=== PATIENT | female | born 1985 | race African-American/Black ===

== ENCOUNTER 2018-10-06 18:03 | Emergency (ER) | payer BC ==
[2018-10-06] MEDS ORDERED: NA CHLORIDE 0.9% 1,000 ML ONE (18:46)
[2018-10-06 18:55] LABS: Absolute Lymphocytes (CBC) 1.8 K/uL (0.7-4.9); Basophils % 1.3 % (0-1.3); Hematocrit 35.6 % (36.0-45.0); Lymphocytes % 22.1 % (15.3-44.8); MPV 9.1 fL (7.6-11.3); RBC Red Blood Cell Count 4.92 M/uL (3.86-4.86)
[2018-10-06 19:02] LABS: Urine Blood 2+ (NEG); Urine Glucose 2+ (NEG); Urine Protein NEGATIVE (NEG)
[2018-10-06] MEDS ORDERED: INSULIN -REGULAR HUMAN 50 UNIT/0.5 ML ML ONE (19:28)
[2018-10-06] MEDS ORDERED: KETOROLAC 30 MG/ML INJ ONE (19:56)
--- NOTE | 2018-10-06 20:39 | ER ---
Nurse's Notes [facility] Name: Irving Mckeon Age: 33 yrs Sex: Female : 1985 Arrival Date: 10/06/2018 Time: 18:04 Bed 8 Private MD: Diagnosis: Headache;Hyperglycemia, unspecified Presentation: 10/06 18:25 Presenting complaint: Patient states: I was at work and feeling bad so I went and got la1 my BGL checked, it was over 400 and I am having a VARELA. Transition of care: patient was not received from another setting of care. Onset of symptoms was October 06, 2018. Risk Assessment: Do you want to hurt yourself or someone else? Patient reports no desire to harm self or others. Initial Sepsis Screen: Does the patient meet any 2 criteria? No. Patient's initial sepsis screen is negative. Does the patient have a suspected source of infection? No. Patient's initial sepsis screen is negative. Care prior to arrival: None. 18:25 Method Of Arrival: Ambulatory la1 18:25 Acuity: BLADIMIR 3 la1 Triage Assessment: 19:44 Headache History: The patient has had previous headaches. General: Appears in no mg2 apparent distress. comfortable, Behavior is calm, cooperative. Pain: Complains of pain in head Also complains of no other associated symptoms. 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 - Social history:: Smoking status: Patient/guardian denies using tobacco. - Ebola Screening: : No symptoms or risks identified at this time. Screenin:43 Abuse screen: Denies threats or abuse. Denies injuries from another. Nutritional mg2 screening: No deficits noted. Tuberculosis screening: Fall Risk No fall in past 12 months (0 pts). IV access (20 points). Assessment: 19:42 Pain: Complains of pain in head Pain does not radiate. Pain currently is 5 out of 10 on mg2 a pain scale. Quality of pain is described as crampy, Pain began gradually, Is intermittent. Neuro: Level of Consciousness is awake, alert, obeys commands, Oriented to person, place, time, situation, Reports headache. Cardiovascular: Capillary refill < 3 seconds Patient's skin is warm and dry. Respiratory: Airway is patent Respiratory effort is even, unlabored, Respiratory pattern is regular, symmetrical. GI: No signs and/or symptoms were reported involving the gastrointestinal system. : No signs and/or symptoms were reported regarding the genitourinary system. EENT: Derm: Skin is intact, is healthy with good turgor, Skin is pink, warm \T\ dry. black. Musculoskeletal: Circulation, motion, and sensation intact. Capillary refill < 3 seconds. 20:58 Reassessment: Patient states feeling better. Patient states symptoms have improved. mg2 Vital Signs: 18:26 BP 137 / 97; Pulse 76; Resp 16; Temp 97.6; Pulse Ox 98% on R/A; Weight 78.93 kg; Height la1 5 ft. 6 in. (167.64 cm); 19:44 BP 133 / 88; Pulse 78; Resp 18; Pulse Ox 100% on R/A; mg2 20:31 BP 121 / 76; Pulse 88; Resp 17; Pulse Ox 100% on R/A; mg2 18:26 Body Mass Index 28.08 (78.93 kg, 167.64 cm) la1 S[place]lin Coma Score: 20:30 Eye Response: spontaneous(4). Verbal Response: oriented(5). Motor Response: obeys kb commands(6). Total: 15. ED Course: 18:04 Patient arrived in ED. as 18:26 Triage completed. la1 18:26 Arm band placed on left wrist. la1 18:33 Latha Echevarria FNP-C is [facility]. kb 18:33 Cristian Jones MD is Attending Physician. kb 18:37 David Resendiz RN is Primary Nurse. mg2 18:37 Initial lab(s) drawn, by ak, sent to lab. Inserted saline lock: 20 gauge in right dh3 antecubital area, using aseptic technique. Blood collected. 18:53 Urine collected: clean catch specimen, cloudy. dh3 19:43 Patient has correct armband on for positive identification. school lunch monitor on. Pulse mg2 ox on. NIBP on. Door closed. Warm blanket given. 19:44 No provider procedures requiring assistance completed. mg2 20:58 IV discontinued, intact, bleeding controlled, No redness/swelling at site. Pressure mg2 dressing applied. Administered Medications: 18:53 Drug: NS 0.9% 1000 ml Route: IV; Rate: 1000 ml; Site: right antecubital; jl7 20:25 Follow up: Response: No adverse reaction; IV Status: Completed infusion; IV Intake: mg2 1000ml 19:30 Drug: Insulin Regular Human 10 units {Co-Signature: [email or web address] (Andres Mitchell RN).} Route: mg2 IVP; Site: right antecubital; 20:45 Follow up: Response: No adverse reaction; Blood sugar is lowered mg2 20:00 Drug: TORadol - Ketorolac 15 mg Route: IVP; Site: right antecubital; mg2 20:45 Follow up: Response: No adverse reaction; Marked relief of symptoms mg2 Point of Care Testing: Blood Glucose: 18:30 Blood Glucose: 491 mg/dL; dh3 20:31 Blood Glucose: 295 mg/dL; mg2 Ranges: Intake: 20:25 IV: 1000ml; Total: 1000ml. mg2 Outcome: 20:38 Discharge ordered by MD. kb 20:58 Discharged to home ambulatory. mg2 20:58 Condition: stable 20:58 Discharge instructions given to patient, Instructed on discharge instructions, follow up and referral plans. Demonstrated understanding of instructions, follow-up care. 21:00 Patient left the ED. mg2 Signatures: Latha Echevarria, PAN DUMPER-C PAN DUMPER-Kimber Jones Lee, RN RN la1 Ariella Posada RN RN jl7 Yessy Iglesias 3 David Resendiz RN RN mg2 Andres Mitchell RN [email or web address]
--- NOTE | 2018-10-06 20:39 | EDPHYS ---
Physician Documentation [facility] Name: Irving Mckeon Age: 33 yrs Sex: Female : 1985 Arrival Date: 10/06/2018 Time: 18:04 Bed 8 Private MD: ED Physician Cristian Jones HPI: 10/06 20:36 This 33 yrs old Black Female presents to ER via Ambulatory with complaints of Headache, kb high sugar. 20:36 The patient or guardian reports hyperglycemia. Onset: The symptoms/episode kb began/occurred today. Associated signs and symptoms: Pertinent positives: headache. Current symptoms: In the emergency department the patient's symptoms have improved. The patient has not experienced similar symptoms in the past. The patient has not recently seen a physician. Pt reports she was working and got a headache so she went to the nurse and had her vitals checked. vitals were ok, but sugar was over 400 so she was told to come get checked out. Pt reports she doesn't check her sugar because she doesn't have a monitor. 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 - Social history:: Smoking status: Patient/guardian denies using tobacco. - Ebola Screening: : No symptoms or risks identified at this time. ROS: 20:35 Constitutional: Negative for fever, chills, and weight loss, ENT: Negative for injury, kb pain, and discharge, Neck: Negative for injury, pain, and swelling, Cardiovascular: Negative for chest pain, palpitations, and edema, Respiratory: Negative for shortness of breath, cough, wheezing, and pleuritic chest pain, Abdomen/GI: Negative for abdominal pain, nausea, vomiting, diarrhea, and constipation, Back: Negative for injury and pain, : Negative for injury, bleeding, discharge, and swelling, MS/Extremity: Negative for injury and deformity, Skin: Negative for injury, rash, and discoloration. 20:35 Neuro: Positive for headache. Exam: 20:35 Constitutional: This is a well developed, well nourished patient who is awake, alert, kb and in no acute distress. Head/Face: Normocephalic, atraumatic. ENT: Nares patent. No nasal discharge, no septal abnormalities noted. Tympanic membranes are normal and external auditory canals are clear. Oropharynx with no redness, swelling, or masses, exudates, or evidence of obstruction, uvula midline. Mucous membranes moist. Neck: Trachea midline, no thyromegaly or masses palpated, and no cervical lymphadenopathy. Supple, full range of motion without nuchal rigidity, or vertebral point tenderness. No Meningismus. Chest/axilla: Normal chest wall appearance and motion. Nontender with no deformity. No lesions are appreciated. Cardiovascular: Regular rate and rhythm with a normal S1 and S2. No gallops, murmurs, or rubs. Normal PMI, no JVD. No pulse deficits. Respiratory: Lungs have equal breath sounds bilaterally, clear to auscultation and percussion. No rales, rhonchi or wheezes noted. No increased work of breathing, no retractions or nasal flaring. Abdomen/GI: Soft, non-tender, with normal bowel sounds. No distension or tympany. No guarding or rebound. No evidence of tenderness throughout. Skin: Warm, dry with normal turgor. Normal color with no rashes, no lesions, and no evidence of cellulitis. MS/ Extremity: Pulses equal, no cyanosis. Neurovascular intact. Full, normal range of motion. Neuro: Awake and alert, GCS 15, oriented to person, place, time, and situation. Cranial nerves II-XII grossly intact. Motor strength 5/5 in all extremities. Sensory grossly intact. Cerebellar exam normal. Normal gait. Vital Signs: 18:26 BP 137 / 97; Pulse 76; Resp 16; Temp 97.6; Pulse Ox 98% on R/A; Weight 78.93 kg; Height la1 5 ft. 6 in. (167.64 cm); 19:44 BP 133 / 88; Pulse 78; Resp 18; Pulse Ox 100% on R/A; mg2 20:31 BP 121 / 76; Pulse 88; Resp 17; Pulse Ox 100% on R/A; mg2 18:26 Body Mass Index 28.08 (78.93 kg, 167.64 cm) la1 Callie Coma Score: 20:30 Eye Response: spontaneous(4). Verbal Response: oriented(5). Motor Response: obeys kb commands(6). Total: 15. MDM: 18:33 Patient medically screened. kb 20:30 Data reviewed: vital signs, nurses notes. Data interpreted: Pulse oximetry: on room air kb is 100 %. Interpretation: normal. 20:31 Counseling: I had a detailed discussion with the patient and/or guardian regarding: the kb historical points, exam findings, and any diagnostic results supporting the discharge/admit diagnosis, lab results, the need for outpatient follow up, a family practitioner, to return to the emergency department if symptoms worsen or persist or if there are any questions or concerns that arise at home. 10/06 18:38 Order name: BMP; Complete Time: 19:17 mg2 10/06 18:38 Order name: CBC with Diff; Complete Time: 19:04 mg2 10/06 18:43 Order name: Acetone, Serum; Complete Time: 19:08 mg2 10/06 18:58 Order name: Urine Dipstick--Ancillary (enter results); Complete Time: 19:04 eb 10/06 18:58 Order name: Urine --Ancillary (enter results); Complete Time: 19:04 eb 10/06 18:43 Order name: Urine Dipstick-Ancillary (obtain specimen); Complete Time: 18:47 mg2 10/06 18:44 Order name: IV Start; Complete Time: 18:47 kb Administered Medications: 18:53 Drug: NS 0.9% 1000 ml Route: IV; Rate: 1000 ml; Site: right antecubital; jl7 20:25 Follow up: Response: No adverse reaction; IV Status: Completed infusion; IV Intake: mg2 1000ml 19:30 Drug: Insulin Regular Human 10 units {Co-Signature: [email or web address] (Andres Mitchell RN).} Route: mg2 IVP; Site: right antecubital; 20:45 Follow up: Response: No adverse reaction; Blood sugar is lowered mg2 20:00 Drug: TORadol - Ketorolac 15 mg Route: IVP; Site: right antecubital; mg2 20:45 Follow up: Response: No adverse reaction; Marked relief of symptoms mg2 Point of Care Testing: Blood Glucose: 18:30 Blood Glucose: 491 mg/dL; dh3 20:31 Blood Glucose: 295 mg/dL; mg2 Ranges: Critical Glucose Levels:Adult <50 mg/dl or >400 mg/dl <40 mg/dl or >180 mg/dl Disposition: 10/06/18 20:38 Discharged to Home. Impression: Headache, Hyperglycemia, unspecified. - Condition is Stable. - Discharge Instructions: Hyperglycemia, [id number], General Headache Without Cause, [id number], Type 2 Diabetes Mellitus, Diagnosis, Adult, [id number]. - Medication Reconciliation Form, Thank You Letter, Antibiotic Education, Prescription Opioid Use, Work release form form. - Follow up: Emergency Department; When: As needed; Reason: Worsening of condition. Follow up: Private Physician; When: 2 - 3 days; Reason: Recheck today's complaints, Continuance of care, Re-evaluation by your physician. Addendum: 10/09/2018 07:20 Co-signature as Attending Physician, Cristian Jones MD. r n Signatures: Dispatcher [employer] EDMS Latha Echevarria, APPRAISAL COORDINATOR-C APPRAISAL COORDINATOR-Ckb Cristian Jones MD MD rn Attema, Lee RN RN la1 Ariella Posada RN RN jl7 David Resendiz RN RN mg2 Andres Mitchell RN [email or web address] Corrections: (The following items were deleted from the chart) 10/06 21:00 20:38 10/06/2018 20:38 Discharged to Home. Impression: Headache; Hyperglycemia, mg2 unspecified. Condition is Stable. Forms are Medication Reconciliation Form, Thank You Letter, Antibiotic Education, Prescription Opioid Use. Follow up: Emergency Department; When: As needed; Reason: Worsening of condition. Follow up: Private Physician; When: 2 - 3 days; Reason: Recheck today's complaints, Continuance of care, Re-evaluation by your physician. kb
== END 2018-10-06 21:00 | disposition home or self-care (01) ==
LOC: ER 18:03
DX: E11.65 Type 2 diabetes mellitus with hyperglycemia (principal)
CPT/HCPCS: 96361; 85025; 80048; 36415; 82010; 81025; 82962 ×2; 81003; 96375; 96374; 99284; J7030

== ENCOUNTER 2019-09-09 03:52 | Emergency (ER) | payer BC ==
--- OUTSIDE RECORDS SUMMARY | 2019-09-09 03:56 | XMS REPORT | Continuity of Care Document ---
:1985 Author Organization [facility] Red Information KBLE Care Team Providers Name Role Phone My True Fit Information KBLE Unavailable Un available Problems Problem Status Onset Classification Date Comments Sourc e Date Reported Other chest pain 11/17/19 11/19/[address] Hyperglycemia, 11/17/19 11/19/2016 T he unspecified [address] [place] [address] s BACK PAIN Active 11/17/19 [place] [id number] [facility] Elevated 05/11/19 05/13/2016 [facility] blood-pressure 17 reading, without diagnosis of hypertension Candidiasis of 05/11/19 05/13/2016 [place] vulva and vagina 17 ALLERGIC Active 05/11/[address] REACTION 17 Diabetes Active Problem 11/19/2016 mellitus [place], (disorder) [place] Medications Medication Details Route Status Patient Ordering Order Source Instructions Provider Date Insulin 10 unit, Inactive The regular Route: SUB-Q, [place] ONCE, Dosing Weight 89.091, kg, Priority: STAT, Start date: 11/16/16 11:36:00 CDT, Stop date: 11/16/16 11:36:00 CDT Sodium 1,000 mL, 1000 Inactive The Chloride 0.9% ml/hr, Infuse [facility] ([place]) IV Over: 1 hr, Route: IV, 1,000, Drug form: INJ, ONCE, Priority: STAT, Dosing Weight 89.091 kg, Start date: 11/16/16 11:35:00 CDT, Duration: 1 doses or times, Stop date: 11/16/16 11:35:00 CDT Saline Flush Notes: Inactive The 0.9% preservative [place] free. Miconazole 1 appl, VAG, Active Nitrate 20 Bedtime, X 7 [place] t MG/ML Vaginal day, # 45 gm, Cream 0 Refill(s) [Monistat] Fluconazole 100 mg = 1 No Longer 100 MG Oral tab, PO, Active 017 [place] Tablet Daily, X 1 [Diflucan] day, # 1 tab, 0 Refill(s) Allergies, Adverse Reactions, Alerts No Known Medication Allergies Immunizations No Data Provided for This Section Results Order Name Results Value Reference Date Interpretation Comments Sonia rce Range CARDIAC Troponin-I <0.02 0.00 - 11/16 The ENZYMES 0. [place] CARDIAC CK MB Index <1.1 0.0 - 2.5 11/16 The ENZYMES [place] CARDIAC CK MB <1.0 0.5 - 3.6 11/16 The ENZYMES [place] CARDIAC Total CK 93 12 - 191 11/16 The ENZYMES [place] CARDIAC Troponin-I <0.02 0.00 - 11/16 The ENZYMES 0. [place] CHEM PANEL eGFR 71 11/16 Result Comment: [place] eGFR is calculated using the CKD-EPI formula. In most young, healthy individuals the eGFR will be >90 mL/min/1.73m2 . The eGFR declines with age. An eGFR of 60-89 may be normal in some populations, particularly the elderly, for whom the CKD-EPI formula has not been extensively validated. Use of the eGFR is not recommended in the following populations:< br/>
Nati viduals with unstable creatinine concentration s, including patients and those with serious co-morbid conditions.<b r/>
Patie nts with extremes in muscle mass or diet.

The data above are obtained from the National Kidney Disease Education Program (NKDEP) which additionally recommends that when the eGFR is used in patients with extremes of body mass index for purposes of drug dosing, the eGFR should be multiplied by the estimated BMI. CHEM PANEL ALT 16 0 - 65 11/16 [place] CHEM PANEL A/G Ratio 0.9 0.7 - 1.6 11/16 [place] CHEM PANEL Alk Phos 86 39 - 136 11/16 [place] CHEM PANEL AST 7 0 - 37 11/16 [place] CHEM PANEL Globulin 3.6 2.7 - 4.2 11/16 [place] CHEM PANEL Albumin Lvl 3.3 3.5 - 5.0 11/16 The [place] CHEM PANEL Total 6.9 6.4 - 8.4 11/16 The Protein [place] CHEM PANEL Bili Total 0.2 0.2 - 1.3 11/16 The [place] CHEM PANEL Glucose Lvl 637 70 - 99 11/16 Result The Comment: [place] Critical Result(s) called to sage hernandez at 11/16/2016 11:31 by dena. Read back OK. CHEM PANEL AGAP 14.3 10.0 - 11/16 The 20.0 [place] CHEM PANEL Calcium Lvl 8.7 8.5 - 10.5 11/16 The [place] CHEM PANEL B/C Ratio 4 6 - 25 11/16 The [place] CHEM PANEL Creatinine 1.20 0.50 - 11/16 The Lvl 1.40 [place] CHEM PANEL Sodium Lvl 130 135 - 145 11/16 The [place] CHEM PANEL CO2 23 24 - 32 11/16 The [place] CHEM PANEL Potassium 4.3 3.5 - 5.1 11/16 The Lvl /2016 [place] CHEM PANEL BUN 5 7 - 22 11/16 The [place] CHEM PANEL Chloride Lvl 97 95 - 109 11/16 The [place] HEMATOLOGY D-Dimer <0.27 11/16 The [place] HEMATOLOGY Monocytes 6.1 2.0 - 12.0 11/16 The [place] HEMATOLOGY Eosinophils 1.9 0.0 - 4.0 11/16 The [place] HEMATOLOGY Basophils 1.1 0.0 - 1.0 11/16 The [place] HEMATOLOGY Lymphocytes 32.4 20.0 - 11/16 The 40.0 [place] HEMATOLOGY Segs 58.5 45.0 - 11/16 The 75.0 [place] HEMATOLOGY Basophils # 0.1 0.0 - 0.2 11/16 The [place] HEMATOLOGY Segs-Bands # 3.5 1.5 - 8.1 11/16 The [place] HEMATOLOGY Lymphocytes 1.9 1.0 - 5.5 11/16 The # [place] HEMATOLOGY Monocytes # 0.4 0.0 - 0.8 11/16 MH The /2016 [place] HEMATOLOGY Eosinophils 0.1 0.0 - 0.5 11/16 The # /2016 [place] HEMATOLOGY MCV 83.0 80.0 - 11/16 The 98.0 /2016 [place] HEMATOLOGY MCH 27.6 27.0 - 11/16 The 31.0 /2016 [place] HEMATOLOGY RBC 4.59 4.20 - 11/16 The 5.40 /2016 [place] HEMATOLOGY Hgb 12.6 12.0 - 11/16 The 16.0 /2016 [place] HEMATOLOGY Hct 38.1 36.0 - 11/16 The 48.0 /2016 [place] HEMATOLOGY WBC 6.0 3.7 - 10.4 11/16 The /2016 [place] HEMATOLOGY Platelet 298 133 - 450 11/16 The [place] HEMATOLOGY MPV 9.3 7.4 - 10.4 11/16 The [place] HEMATOLOGY MCHC 33.2 32.0 - 11/16 The 36.0 [place] HEMATOLOGY RDW 13.9 11.5 - 11/16 The 14.5 [place] URINE AND UA <=1.0 0.1 - 1.0 11/16 The STOOL Urobilinogen mg/dL /2016 [place] URINE AND UA Mucus Few /LPF None Seen 11/16 The STOOL /LPF /2016 [place] URINE AND UA Nitrite Negative Negative 11/16 The [facility] (11/16/16 11:01 AM) /2016 [place] URINE AND UA Leuk Est Moderate Negative 11/16 The STOOL *ABN* /2016 [place] (11/16/16 11:01 AM) URINE AND UA RBC 7 0 - 2 11/16 The STOOL /2016 [place] URINE AND UA WBC 6 0 - 5 11/16 The STOOL /2016 [place] URINE AND UA Sq Epi Many /LPF Few /LPF 11/16 The STOOL /2016 [place] URINE AND UA Turbidity Clear Clear 11/16 The [facility] (11/16/16 11:01 AM) /2016 [place] URINE AND UA Color Light Yellow Yellow 11/16 The STOOL *NA* /2016 [place] (11/16/16 11:01 AM) URINE AND UA pH 5.5 5.0 - 8.0 11/16 The STOOL /2016 [place] URINE AND UA Spec Grav 1.026 <=1.030 11/16 The STOOL /2016 [place] URINE AND UA Glucose >=1000 Negative 11/16 The STOOL mg/dL mg/dL /2016 [place] URINE AND UA Protein Negative Negative 11/16 The ST[facility]OL mg/dL mg/dL [place] URINE AND UA Blood Negative Negative 11/16 The STOOL (11/16/16 11:01 AM) /2016 [facility] and URINE AND UA Bili Negative Negative 11/16 The STOOL *NA* /2016 [place] (11/16/16 11:01 AM) URINE AND UA Ketones 10 mg/dL Negative 11/16 The STOOL mg/dL /2016 [place] URINE CHEM U Preg Negative Negative 11/16 The (11/16/16 11:01 AM) [facility] MOLECULAR HSV 1 by PCR Positive 1 Negative 05/11 Result DIAGNOSTIC *ABN* Comment: This [facility] (05/10/16 9:27 PM) sample was POSITIVE for HSV 1 DNA by real-time PCR using hybridization probe and melting curve analysis.<br/ >
Positiv e results can be seen in patients with a primary infection such as in the central nervous system among neonates as well as in patients with reactivation of HSV infection in genital herpes.
< br/>"Signific ant Findings called to Sakina Mcnair on 05/11/2016 16:34 by [place]. Read Back OK." MOLECULAR HSV 2 by PCR Negative 2 Negative 05/11 Result DIAGNOSTIC (05/10/16 9:27 PM) Comment: Th is [place] sample was NON DETECTED or BELOW THE LOWER LIMITS OF DETECTION for HSV 2 DNA by real-time PCR using hybridization probe and melting curve analysis. MOLECULAR Source HSV Genital 05/11 DIAGNOSTIC *NA [place] (05/10/16 9:27 PM) MOLECULAR Source Endocervix 05/11 DIAGNOSTIC APTIMA * [place] (05/10/16 9:26 PM) MOLECULAR C Negative Negative 05/11 DIAGNOSTIC trachomatis * [place] by Amp Det (05/10/16 9:26 PM) (APTIMA) MOLECULAR N gonorrhea Negative Negative 05/11 DIAGNOSTIC by Amp Det * [place] (APTIMA) (05/10/16 9:26 PM) URINE AND UA Leuk Est Negative Negative 05/11 [facility]OOL (05/10/16 7:25 PM) [place] URINE AND UA 0.2 0.1 - 1.0 05/11 STOOL Urobilinogen /2016 [facility] URINE AND UA Nitrite Negative Negative 05/11 STOOL (05/10/16 7:25 PM) /2016 [place] URINE AND UA Blood Negative Negative 05/11 [facility] (05/10/16 7:25 PM) [place] URINE AND UA Spec Grav <=1.005 <=1.030 05/11 STOOL *NA* /2016 [facility] (05/10/16 7:25 PM) URINE AND UA Turbidity Clear Clear 05/11 [facility] (05/10/16 7:25 PM) [place] URINE AND UA Color STRAW 05/11 STOOL /2016 [place] URINE AND UA Bili Negative Negative 05/11 STOOL *NA* /2016 [facility] (05/10/16 7:25 PM) URINE AND UA Ketones Negative Negative 05/11 STOOL *NA* /2016 [facility] (05/10/16 7:25 PM) URINE AND UA Glucose >=1000 Negative 05/11 STOOL mg/dL mg/dL /2016 [place] URINE AND UA Protein Negative Negative 05/11 [facility] (05/10/16 7:25 PM) [place] URINE AND UA pH 6.5 5.0 - 8.0 05/11 STOOL /2016 [place] URINE AND UA WBC 0-2 /HPF None Seen 05/11 STOOL /HPF /2016 [facility] URINE AND UA RBC None Seen 0 - 2 05/11 [facility] (05/10/16 7:25 PM) [place] URINE AND UA Bacteria None Seen None Seen 05/11 [facility] (05/10/16 7:25 PM) [place] URINE AND UA Sq Epi Rare /LPF Few /LPF 05/11 STOOL [facility] URINE CHEM U Preg Negative Negative 05/11 (05/10/16 7:25 PM) [place] Pathology Reports No Data Provided for This Section Diagnostic Reports Report Value Date Source Chest 1view DX Clinical Indication: - chest pain. 11/16/2016 [facility] Comparison: None. TECHNIQUE: AP 1 view chest radiograph was perfor med. FINDINGS: Lung volumes are low. Lungs are clear. Cardiomediastinal silhouette is within normal limits for exam technique. No acute osseous abnormalities. IMPRESSION: Low lung volumes related to technique. No focal consolidation. SL: [id number] Consultation Notes No Data Provided for This Section Discharge Summaries No Data Provided for This Section History and Physicals No Data Provided for This Section Vital Signs Vital Sign Value Date Comments Source Systolic (mm Hg) 127 11/16/2016 [place] Diastolic (mm Hg) 74 11/16/2016 [facility] [place] Respitory Rate 24 11/16/2016 [facility] [place] Heart Rate 80 11/16/2016 [facility] [place] Respitory Rate 26 11/16/2016 [facility] [place] Systolic (mm Hg) 125 11/16/2016 [facility] [place] Diastolic (mm Hg) 82 11/16/2016 [facility] [place] Temperature Oral (F) 98.2 F 11/16/2016 [place] Heart Rate 75 11/16/2016 [facility] [place] Systolic (mm Hg) 132 11/16/2016 [facility] [place] Diastolic (mm Hg) 81 11/16/2016 [facility] [place] Heart Rate 82 11/16/2016 [facility] [place] Respitory Rate 16 11/16/2016 [facility] nds Weight 89.091 11/16/2016 [facility] [place] BMI Calculated 31.7 11/16/2016 [facility] n[facility] Height 167.64 cm 11/16/2016 [facility] [place] Temperature Oral (F) 98.2 F 11/16/2016 [place] Systolic (mm Hg) 144 05/11/2016 [facility] t Diastolic (mm Hg) 82 05/11/2016 [facility] st Temperature Oral (F) 97.1 F 05/11/2016 [place] Heart Rate 76 05/11/2016 [place] Respitory Rate 18 05/11/2016 [place] Systolic (mm Hg) 133 05/11/2016 [place] Diastolic (mm Hg) 100 05/11/[address] Respitory Rate 20 05/11/2016 [place] Systolic (mm Hg) 130 05/11/2016 [place] Diastolic (mm Hg) 83 05/11/[facility] Rate 18 05/11/2016 [place] Weight 99.545 05/10/2016 [facility] Temperature Oral (F) 99.8 F 05/10/2016 [place] Height 170.18 cm 05/10/2016 [facility] BMI Calculated 34.37 05/10/2016 [facility] Heart Rate 101 05/10/2016 [facility] Encounters Location Location Encounter Encounter Reason Attending ADM DC Stat us Source Details Type Number For Provider Date Date [facility] [id number] [place] 05/10 05/11 Red Vazquez /2016 [facility] Emergency [id number] Berna 11/16 11/16 Aftab Murray Guicho gavin [facility] Procedures Procedure Code Date Perfomer Comments Source section [id number] [facility] Assessment and Plan No Data Provided for This Section Plan of Care No Data Provided for This Section Social History Social History Date Source Social History TypeResponse 11/16/2016 [place] [facility] Smoking Status Never smoker; Ready to change: No; Emilia rns about tobacco use in household: No; Exposure to Tobacco Smoke None; Cigarette Smoking Last 365 Days No; Reg Smoking Cessation Counseling No Social History TypeResponse 05/11/2016 [facility] Smoking Status Never smoker; Exposure to Tobacco Smoke None; Cigarette Smoking Last 365 Days No; Reg Smoking Cessation Counseling No Family History No Data Provided for This Section Advance Directives No Data Provided for This Section Functional Status No Data Provided for This Section
--- OUTSIDE RECORDS SUMMARY | 2019-09-09 03:58 | XMS REPORT | Continuity of Care Document ---
:1985 Author Organization [facility] [place] [facility] t Address [address] [place] [address] Care Team Providers Name Role Phone Zara Murrya Attending Clinician EULOGIO Attending Clinician Unavailable COTY Attending Clinician Unavailable AKASH Attending Clinician Unavailable ESTRADA Attending Clinician Unavailable Keaton Vazquez Attending Clinician MILENA Attending Clinician Unavailable Problems Condition Condition Condition Status Onset Resolution Last Treating Co mments Source Name Details Category Date Date Treatment Clinician Date BACK PAIN Diagnosis Active 2016-11-16 Memoria 11-16 11:19:00 l BACK 00:00: [place] PAIN 00 Active 11/16/2016 [facility] ALLERGIC Diagnosis Active 2016-05-10 M emoria REACTION - 23:30:00 l ALLERGIC 00:00: Ish n REACTION 00 Active 05/10/2016 [facility] Problem Active Unive rs discharge discharge HL7.CCDAR2 [place] U[place] UTI Problem Active Univers (urinary (urinary HL7.CCDAR2 it y of tract tract [place] infection) infection) Ph ysici ans Acanthosis Acanthosis Problem Active U nivers nigricans, nigricans, HL7.CCDAR2 ity of acquired acquired [place] Physici ans Acute Acute Problem Active Univers thoracic thoracic HL7.CCDAR2 [place] of [place] pain [place] pain [place] Noncomplia Noncomplia Problem Active U nivers nce nce HL7.CCDAR2 ity of [place] Physici ans Uncontroll Uncontroll Problem Active U nivers ed ed HL7.CCDAR2 ity of diabetes diabetes [place] mellitus mellitus Physic i with with ans microalbum microalbum inuria inuria Screen for Screen for Problem Active U nivers STD STD HL7.CCDAR2 [place] of (sexually ([place]ually [place] transmitte transmitte Ph ysici d disease) d disease) an s Vaginal Vaginal Problem Active Univers bleeding bleeding HL7.CCDAR2 it y of [place] Physici ans Vaginal Vaginal Problem Active Univers discharge discharge HL7.CCDAR2 ity of [place] Physici ans Encounter Encounter Problem Active Uni vers for for HL7.CCDAR2 [place] of mirena of mirena Phys ici IUD IUD ans Problem Active Univers control control HL7.CCDAR2 ity of [place] Physici ans Obesity Obesity Problem Active Univers HL7.CCDAR2 ity of [place] Physici ans PCOS PCOS Problem Active Univers (polycysti (polycysti HL7.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) Phys ici ans Trichomoni Trichomoni Problem Active U nivers asis of asis of HL7.CCDAR2 ity of vagina vagina [place] Physici ans Bacterial Bacterial Problem Active Uni vers vaginosis vaginosis HL7.CCDAR2 ity of [place] Physici ans Vaginal Vaginal Problem Active Univers candidiasi candidiasi HL7.CCDAR2 ity of s s [place] Physici ans Acute Acute Problem Active Univers tonsilliti tonsilliti HL7.CCDAR2 ity of s s [place] Physici ans Hyperglyce Hyperglyce Problem Active U nivers kirsten kirsten HL7.CCDAR2 ity of [place] Physici ans DM DM Problem Active Univers (diabetes (diabetes HL7.CCDAR2 [place] of mellitus[place] mellitus[place] type 2 type 2 Physici ans Other Problem 2016-2016-11-19 2016-11-19 M emoria chest pain 11-16 04:22:32 04:22:32 l Other 05:00: Red chest pain 00 11/16/2016 11/19/2016 [facility] Hyperglyce Problem 2016-11-19 2016-11-19 Delia kirsten, 11-16 04:22:32 04:22:32 l unspecifie 05:00: Ish n d Hyperglyce 00 kirsten, unspecifie d 11/16/2016 11/19/2016 [facility] Elevated Problem 2016-2016-05-13 2016-05-13 Memoria blood-pres 05-10 03:32:39 03:32:39 l sure Elevated 05:00: Ish correa reading, blood-pres 00 without sure diagnosis reading, of without hypertensi diagnosis on of hypertensi on 05/10/2016 05/13/2016 [facility] Candidiasi Problem 2016-2016-05-13 2016-05-13 Memoria s of vulva 05-10 03:32:39 03:32:39 l and vagina 05:00: Ish correa Candidiasi 00 s of vulva and vagina 05/10/2016 05/13/2016 [facility] Allergies, Adverse Reactions, Alerts This patient has no known allergies or adverse reactions. Family History Family Member Diagnosis Comments Start Date Stop Date Source Mother Family history of [facility] hypertension Physicians Father Family history of [facility] diabetes mellitus Physici ans Social History Smoking Status Start Date Stop Date Source Social History [facility] Medications Ordered Filled Start Stop Current Ordering Indication Dosage Frequency Signature Comments Components Source Medication Medication Date Date Medication? Clinician (SIG) Name Name Insulin No 10 unit, Memori a regular 11-16 Route: l 16:36: SUB-Q, Red 00 ONCE, Dosing Weight 89.091, kg, Priority: STAT, Start date: 11/16/16 11:36:00 CDT, Stop date: 11/16/16 11:36:00 CDT Sodium No 1,000 mL, Memori a Chloride 11-16 1000 l 0.9% 16:35: ml/hr, [place] (Bolus) IV 00 Infuse Over: 1 hr, Route: IV, 1,000, Drug form: INJ, ONCE, Priority: STAT, Dosing Weight 89.091 kg, Start date: 11/16/16 11:35:00 CDT, Duration: 1 doses or times, Stop date: 11/16/16 11:35:00 CDT Saline No Notes: Memoria Flush 0.9% 11-16 preservati l 15:27: ve free. Red 00 Blood Blood Yes OSSAMA Use 4 x Univer s Glucose Glucose 7-19 AL-TAHER daily ity of Monitor Monitor 00:00: M.D. ReTargeter System System 00 Physici w/Device w/Device ans Kit Kit Lancets Lancets Yes OSSAMA 4 TIMES A Univers 7-19 AL-TAHER DAY ity of 00:00: M.D. [place] 00 Physici ans Blood Blood Yes OSSAMA Q0.25D TEST 4 Unive rs Glucose Glucose 09-08 AL-TAHER TIMES ity of Test In Test In 00:00: M.D. DAILY. [place] Vitro Strip Vitro Strip 00 P hysici ans MetFORMIN MetFORMIN Yes [place] Q0.5D TAKE 1 Univers HCl - 1000 HCl - 1000 09-08 AL-TAHER TABLET ity of MG Oral MG Oral 00:00: M.D. TWICE [place] Tablet Tablet 00 DAILY WITH Physi ci MEALS. ans HumuLIN HumuLIN Yes OSSAMA 12 Q0.5D INJECT 12 Univers 70/30 70/30 09-08 AL-TAHER UNIT Twice ity of KwikPen KwikPen 00:00: M.D. daily [place] (70-30) 100 (70-30) 100 00 MDD:50 Physici UNIT/ML UNIT/ML TDD:24 ans Subcutaneou Subcutaneou s s Suspension Suspension Pen-injecto Pen-injecto r r Pen [place] Pen [place] Yes OSSAMA USE UP TO Univers 31G X 5 MM 31G X 5 MM 5-08 AL-TAHER 3 TIMES ity of 00:00: M.D. DAILY [place] 00 Physici ans Amoxicillin Amoxicillin Yes SHIFAT Q12H TAKE 1 Univers -Pot -Pot 4-21 BUSTOS N.P. TABLET ity of Clavulanate Clavulanate 00:00: EVERY 12 [place] 875-125 MG 875-125 MG 00 HOURS Ph ysici Oral Tablet Oral Tablet UNTIL ans GONE. Flonase Flonase Yes SHIFAT QD USE 1 Univ ers Sensimist Sensimist 4-21 BUSTOS N.P. SPRAY IN ity of 27.5 27.5 00:00: EACH [place] MCG/SPRAY MCG/SPRAY 00 NOSTRIL Ph ysici Nasal Nasal ONCE ans Suspension Suspension DAILY. Miconazole Yes 1 appl, Jose adelfo Nitrate 20 3-21 VAG, l MG/ML 03:25: Bedtime, X Ish n Vaginal 00 7 day, # Cream 45 gm, 0 [Monistat] Refill(s) Fluconazole No 100 mg = 1 Memoria 100 MG Oral 3-21 tab, PO, l Tablet 03:25: Daily, X 1 Maame nn [Diflucan] 00 day, # 1 tab, 0 Refill(s) MetroNIDAZO MetroNIDAZO Yes REKHA INSERT 1 Univers LE 0.75 % LE 0.75 % 3- ESTRADA APPLICATOR ity of Vaginal Gel Vaginal Gel 00:00: M.D. FUL [place] 00 INTRAVAGIN Physici ALLY AT ans BEDTIME NIGHTLY. Fluconazole Fluconazole Yes REKHA 1 TAKE 1 Univers 150 MG Oral 150 MG Oral 3-07 ESTRADA TABLET NOW ity of Tablet Tablet 00:00: M.D. AND AGAIN [place] 00 IN 3 DAYS. Physici REPEAT ans MONTHLY. MetroNIDAZO MetroNIDAZO Yes REKHA Q0.5D TAKE 1 Univers LE 500 MG LE 500 MG 2-21 ESTRADA TABLET ity of Oral Tablet Oral Tablet 00:00: M.D. TWICE [place] 00 DAILY Physici UNTIL ans FINISHED. NovoLIN NovoLIN Yes OSSAMA use 10 Uni vers 70/30 70/30 2-13 AL-TAHER units ity of ReliOn ReliOn 00:00: M.D. before [place] (70-30) 100 (70-30) 100 00 breakfast Physici UNIT/ML UNIT/ML and 10 ans Subcutaneou Subcutaneou units s s before Suspension Suspension dinner Insulin Insulin Yes OSSAMA USE Uni vers Syringe 31G Syringe 31G 2-13 AL-TAHER DIRECTED. ity of X 5/16" 0.3 X 5/16" 0.3 00:00: M.D. [place] ML ML 00 Physici ans Accu-Chek Accu-Chek Yes OSSAMA USE Univers Linda Linda 2-10 AL-TAHER DIRECTED. ity of Device Device 00:00: M.D. [place] 00 Physici ans Accu-Chek Accu-Chek Yes OSSAMA Q0.5D TEST TWICE Univers Linda Plus Linda Plus 2-10 AL-TAHER DAILY. ity of In Vitro In Vitro 00:00: M.D. [place] Strip Strip 00 Physici ans Accu-Chek Accu-Chek Yes OSSAMA USE Univers FastClix FastClix 2-10 AL-TAHER DIRECTED. ity of Lancet KIT Lancet KIT 00:00: M.D. [place] 00 [place]ici ans Accu-Chek Accu-Chek 2016-0 Yes OSSAMA Check Univers FastClix FastClix 2-10 AL-TAHER blood it y of Lancets Lancets 00:00: M.D. sugars [place] 00 twice Physici daily ans MetFORMIN MetFORMIN 2015-02 Yes [place] Q0.5D TAKE 1 Univers HCl - 1000 HCl - 1000 2-23 AL-TAHER TABLET ity of MG Oral MG Oral 00:00: M.D. TWICE [place] Tablet Tablet 00 DAILY. Physici ans Accu-Chek Accu-Chek 2015- Yes NAHN TA USE Univers Compact Compact 2-23 M.D. DIRECTED. ity of Plus Care Plus Care 00:00: Alli as KIT KIT 00 Physici ans Aspirin 81 Aspirin 81 2015-02 Yes OSSAMA QD CHEW AND Univers MG Oral MG Oral 2-23 AL-TAHER SWALLOW 1 ity of Tablet Tablet 00:00: M.D. TABLET [place] Chewable Chewable 00 DAILY. Physi ci ans Lisinopril Lisinopril 2015-02 Yes OSSAMA 1 QD TAKE 1 Univers 5 MG Oral 5 MG Oral 2-23 AL-TAHER TABLET ity of Tablet Tablet 00:00: M.D. DAILY. [place] 00 Physici ans Atorvastati Atorvastati 2015-02 Yes OSSAMA TAKE 1 Univers n Calcium n Calcium 2-23 AL-TAHER TABLET AT ity of 10 MG Oral 10 MG Oral 00:00: M.D. BEDTIME. [place] Tablet Tablet 00 Physici ans Vital Signs Vital Name Observation Time Observation Value Comments Source Systolic (mm Hg) 2016-11-16 22:10:00 Josesandor Moon Diastolic (mm Hg) 2016-11-16 22:10:00 Mem orial Red Respitory Rate 2016-11-16 22:10:00 Evie Allred Heart Rate 2016-11-16 22:10:00 [facility] Respitory Rate 2016-11-16 20:00:00 Evie Allred Systolic (mm Hg) 2016-11-16 20:00:00 Jose tahira [place] Diastolic (mm Hg) 2016-11-16 20:00:00 Mem orial Red Temperature Oral (F) 2016-11-16 20:00:00 98.2 F [facility] [place] Heart Rate 2016-11-16 20:00:00 [facility] [place] Systolic (mm Hg) 2016-11-16 17:29:00 Jose rial [place] Diastolic (mm Hg) 2016-11-16 17:29:00 Mem orial Red Heart Rate 2016-11-16 17:29:00 [facility] [place] Respitory Rate 2016-11-16 17:29:00 Memori al [place] Weight 2016-11-16 15:24:00 [facility] BMI Calculated 2016-11-16 15:24:00 Memori al [place] Height 2016-11-16 15:24:00 167.64 cm [facility] [place] Temperature Oral (F) 2016-11-16 15:24:00 98.2 F [facility] Systolic (mm Hg) 2016-05-11 03:22:00 Jose rial [place] Diastolic (mm Hg) 2016-05-11 03:22:00 Mem orial Red Temperature Oral (F) 2016-05-11 03:15:00 97.1 F [facility] [place] Heart Rate 2016-05-11 03:00:00 [facility] Respitory Rate 2016-05-11 03:00:00 Memori al [place] Systolic (mm Hg) 2016-05-11 03:00:00 Jose rial [place] Diastolic (mm Hg) 2016-05-11 03:00:00 Mem orial Red Respitory Rate 2016-05-11 02:00:00 Memori al [place] Systolic (mm Hg) 2016-05-11 02:00:00 Jose rial Red Diastolic (mm Hg) 2016-05-11 02:00:00 Mem orial Red Respitory Rate 2016-05-11 01:00:00 Memori al Red Weight 2016-05-10 20:47:00 [facility] [place] Temperature Oral (F) 2016-05-10 20:47:00 99.8 F [facility] Height 2016-05-10 20:47:00 170.18 cm [facility] BMI Calculated 2016-05-10 20:47:00 Memori al Red Heart Rate 2016-05-10 20:47:00 [facility] Procedures Procedure Date / Time Performed Performing Clinician [facility] e History of University o f [place] Section Physicians section [facility] Ish n Encounters Start End Encounter Admission Attending Care Care Encounter Source Date/Time Date/Time Type Type Clinicians Facility Department ID 2016-11-16 2016-11-16 Outpatient [facility] [id number] 10:18:00 17:22:00 Berna Zuñiga 01 2016-10-28 2016-10-28 Arturo KRISHNAN, [facility] UTP [id number] Univers 13:00:00 13:00:00 t; JOSE MITCHELL [place] STEPHEN Physic i RD ans 2016-10-06 2016-10-06 Arturo ANSARI, [facility] UTP [id number] Univers 10:00:00 10:00:00 t; Bo RUTLEDGE M.D. [place] Ronnell RUTLEDGE M.D. ans 2016-09-09 2016-09-09 Arturo ANSARI, NISHA UTP [id number] Univers 08:20:00 08:20:00 t; oB RUTLEDGE M.D. [place] Ronnell RUTLEDGE M.D. ans 2016-09-08 2016-09-08 Arturo ANSARI, NISHA UTP [id number] Univers 14:20:00 14:20:00 t; Bo RUTLEDGE M.D. [place] Ronnell RUTLEDGE M.D. ans 2016-06-11 2016-06-11 NISHA Baig UTP [id number] Univers 09:30:00 09:30:00 t; EDIN BUSTOS NP it y of SHIFAT, NP [place] Physicnicolette ans 2016-05-18 2016-05-18 NIHSA Mccloud UTP [id number] Univers 09:30:00 09:30:00 t; Ricco DA SILVA M.D. [place] Ronnell DA SILVA M.D. ans 2016-05-10 2016-05-10 Outpatient George [facility] [id number] 15:41:00 22:39:00 [place] 00 Ke[place] 2016-04-27 2016-04-27 NISHA Mccloud UTP [id number] Univers 09:30:00 09:30:00 t; Ricco DA SILVA M.D. [place] Ronnell DA SILVA M.D. ans 2016-04-05 2016-04-05 AppointNISHA Fritz UTP [id number] Univers 08:30:00 08:30:00 t; Ricco DA SILVA M.D. [place] Ronnell DA SILVA M.D. ans 2016-04-02 2016-04-02 AppointNISHA Oliva UTP [id number] Univers 10:00:00 10:00:00 t; Bo RUTLEDGE M.D. [place] Ronnell RUTLEDGE M.D. ans 2016-03-30 2016-03-30 Appointmen PEDRO ABBOTT, NISHA UTP [id number] Univers 09:00:00 09:00:00 t; Katarina ABBOTT M.D. [facility] 2016-02-27 2016-02-27 AppointNISHA Oliva UTP [id number] Univers 09:30:00 09:30:00 t; Bo RUTLEDGE M.D. [place] Ronnell RUTLEDGE M.D. ans 2016-02-19 2016-02-19 Appointmen PEDRO ABBOTT, NISHA UTP [id number] Univers 09:30:00 09:30:00 t; Katarina ABBOTT M.D. [facility] 2016-02-13 2016-02-13 AppointNISHA Oliva UTP [id number] Univers 14:00:00 14:00:00 t; Bo RUTLEDGE M.D. [place] Ronnell RUTLEDGE M.D. [facility] 2016-02-13 2016-02-13 Appointmen PEDRO ABBOTT, NISHA UTP [id number] Univers 10:30:00 10:30:00 t; Katarina ABBOTT M.D. [facility] 2016-02-12 2016-02-12 AppointPEDRO Perales, NISHA UTP [id number] Univers 09:30:00 09:30:00 t; Katarina ABBOTT M.D. [facility] Results Test Description Test Time Test Comments Results Result Comments Source CARDIAC ENZYMES 2016-11-16 <0.02 [facility] 19:10:00 CARDIAC ENZYMES 2016-11-16 <1.1 [facility] 16:01:00 CARDIAC ENZYMES 2016-11-16 <1.0 [facility] 16:01:00 CARDIAC ENZYMES 2016-11-16 93 [facility] 16:01:00 CARDIAC ENZYMES 2016-11-16 <0.02 [facility] 16:01:00 CHEM PANEL 2016-11-16 71 [facility] Maame nn 16:01:00 CHEM PANEL 2016-11-16 16 [facility] [place] nn 16:01:00 CHEM PANEL 2016-11-16 0.9 [facility] [place] nn 16:01:00 CHEM PANEL 2016-11-16 86 [facility] [place] nn 16:01:00 CHEM PANEL 2016-11-16 7 [facility] nn 16:01:00 CHEM PANEL 2016-11-16 3.6 [facility] [place] nn 16:01:00 CHEM PANEL 2016-11-16 3.3 [facility] [place] nn 16:01:00 CHEM PANEL 2016-11-16 6.9 [facility] [place] nn 16:01:00 CHEM PANEL 2016-11-16 0.2 [facility] [place] nn 16:01:00 CHEM PANEL 2016-11-16 637 [facility] [place] nn 16:01:00 CHEM PANEL 2016-11-16 14.3 [facility] [place] nn 16:01:00 CHEM PANEL 2016-11-16 8.7 [facility] [place] nn 16:01:00 CHEM PANEL 2016-11-16 4 [facility] [place] nn 16:01:00 CHEM PANEL 2016-11-16 1.20 [facility] [place] nn 16:01:00 CHEM PANEL 2016-11-16 130 [facility] [place] nn 16:01:00 CHEM PANEL 2016-11-16 23 [facility] [place] nn 16:01:00 CHEM PANEL 2016-11-16 4.3 [facility] [place] nn 16:01:00 CHEM PANEL 2016-11-16 5 [facility] [place] nn 16:01:00 CHEM PANEL 2016-11-16 97 [facility] [place] nn 16:01:00 HEMATOLOGY 2016-11-16 <0.27 [facility] nn 16:01:00 HEMATOLOGY 2016-11-16 6.1 [facility] [place] nn 16:01:00 HEMATOLOGY 2016-11-16 1.9 [facility] nn 16:01:00 HEMATOLOGY 2016-11-16 1.1 [facility] [place] nn 16:01:00 HEMATOLOGY 2016-11-16 32.4 [facility] nn 16:01:00 HEMATOLOGY 2016-11-16 58.5 [facility] nn 16:01:00 HEMATOLOGY 2016-11-16 0.1 [facility] [place] nn 16:01:00 HEMATOLOGY 2016-11-16 3.5 [facility] Ma[facility] nn 16:01:00 HEMATOLOGY 2016-11-16 1.9 [facility] nn 16:01:00 HEMATOLOGY 2016-11-16 0.4 [facility] nn 16:01:00 HEMATOLOGY 2016-11-16 0.1 [facility] nn 16:01:00 HEMATOLOGY 2016-11-16 83.0 [facility] nn 16:01:00 HEMATOLOGY 2016-11-16 16:01:00 Test Item Value Reference Range Interpretation Comme nts MCH (test code = MCH) 27.6 pg 27.0-31.0 [facility] [id number] 16:01:004.59[facility]annHEMATOLOGY 2016-11-16 16:01:0012.6[facility] [id number] 16:01:0038.1[facility] [id number] 16:01:006.0[facility] [id number] 16:01:48695Bsjufagj [id number] 16:01:009.3[facility] [place] [id number] 16:01:0033.2[facility] [id number] 16:01:00 13.9[facility] AND [id number] 16:01:00Negative (11/16/16 11:01 AM)[facility] [id number] 16:01:00Moderate *ABN*(11/16/16 11:01 AM)[facility] [id number] 16:01:007[facility] [place] URINE AND [id number] 16:01:006[facility] AND [id number] 16:01:00Clear (11/16/16 11:01 AM)[facility] [id number] 16:01:00Light Yellow *NA*(11/16/16 11:01 AM)[facility] STOOL 2016-11-16 16:01:005.5[facility] [id number] 16:01:001.026 [facility] [id number] 16:01:00Negative (11/16/16 11:01 AM) [facility] [id number] 16:01:00Negative *NA*(11/16/16 11:01 AM)[facility] [id number] 16:01:00Negative (11/16/16 11:01 AM) [facility]ann[facility]LECULAR [id number] 02:27:00Positive 1*ABN*(05/10/16 9:27 PM)[facility]LE[facility] [id number] 02:27:00Negative 2(05/10/16 9:27 PM)[facility]ann[facility]LE[facility]ULAR [id number] 02:27:00Genital *NA*(05/10/16 9:27 PM)[facility]ann[facility]LE[facility] [id number] 02:26:00 Endocervix *NA*(05/10/16 9:26 PM)[facility] [id number] 02:26:00Negative *NA*(05/10/16 9:26 PM)[facility]ann[facility] DIAGNOSTIC 2016-05-11 02:26:00Negative *NA*(05/10/16 9:26 PM)[facility] STOOL 2016-05-11 00:25:00Negative (05/10/16 7:25 PM)[facility] STOOL 2016-05-11 00:25:000.2[facility] [id number] 00:25:00Negative (05/10/16 7:25 PM)[facility] [id number] 00:25:00Negative (05/10/16 7:25 PM)[facility] [id number] 00:25:00<=1.005 *NA*(05/10/16 7:25 PM)[facility] [id number] 00:25:00Clear (05/10/16 7:25 PM)[facility] [id number] 00:25:00Negative *NA*(05/10/16 7:25 PM)[facility] [id number] 00:25:00Negative *NA*(05/10/16 7:25 PM)[facility] [id number] 00:25:00Negative (05/10/16 7:25 PM)[facility] [id number] 00:25:00 Test Item Value Reference Range Interpretation Comments UA pH (test code = UA pH) 6.5 1 5.0-8.0 [facility] [id number] 00:25:00None Seen (05/10/16 7:25 PM) [facility] [id number] 00:25:00None Seen (05/10/16 7:25 PM) [facility] [id number] 00:25:00Negative (05/10/16 7:25 PM)[facility]
[2019-09-09] MEDS ORDERED: ACETAMINOPHEN 500 MG TAB ONE (04:33)
--- NOTE | 2019-09-09 05:13 | ER ---
Nurse's Notes [facility] [place] Name: [place] Mckeon Age: 33 yrs Sex: Female : 1985 Arrival Date: 09/09/2019 Time: 03:54 Bed 4 Private MD: Diagnosis: Right Shoulder Strain Presentation: 09/08 04:03 Chief complaint: Patient states: My right shoulder has been hurting for 2 days, I have sg had this pain before in the past but this time even with rest it isn't really getting any better. Denies N/V/D/Fever, denies injury or trauma, reports pain has kept her up this evening, was not able to sleep. Coronavirus screen: Patient denies a cough. Patient denies shortness of breath or difficulty breathing. Patient denies measured and/or subjective temperature greater than 100.4F prior to today's visit. Patient denies travel on a cruise ship or to a country the [facility] currently lists as an affected area. Patient denies contact with known and/or suspected case of COVID-19. Proceed with normal triage. Ebola Screen: Patient negative for fever greater than or equal to 101.5 degrees Fahrenheit, and additional compatible Ebola Virus Disease symptoms Patient denies exposure to infectious person. Patient denies travel to an Ebola-affected area in the 21 days before illness onset. No symptoms or risks identified at this time. Initial Sepsis Screen: Does the patient meet any 2 criteria? No. Patient's initial sepsis screen is negative. Does the patient have a suspected source of infection? No. Patient's initial sepsis screen is negative. Risk Assessment: Do you want to hurt yourself or someone else? Patient reports no desire to harm self or others. Onset of symptoms was September 07, 2019. Care prior to arrival: None. Activity prior to arrival: None. Mechanism of Injury: No Mechanism of Injury. Transition of care: patient was not received from another setting of care. 04:03 Method Of Arrival: Ambulatory 04:03 Acuity: BLADIMIR 4 sg END FRAZER: 04:05 LMP 09/09/2019 sg Historical: - Allergies: 03:57 No Known Allergies; sg - PMHx: 03:57 Diabetes - NIDDM; sg - PSHx: 04:18 ; sg - Immunization history:: Adult Immunizations up to date. - Social history:: Smoking status: Patient denies any tobacco usage or history of. Screenin:28 Abuse screen: Denies threats or abuse. Denies injuries from another. Nutritional rv screening: No deficits noted. Tuberculosis screening: No symptoms or risk factors identified. Fall Risk None identified. Assessment: 04:26 General: Appears comfortable, Behavior is calm, cooperative. Pain: Complains of pain in rv right shoulder Pain currently is 9 out of 10 on a pain scale. Neuro: Level of Consciousness is awake, alert, obeys commands, Oriented to person, place, time, situation. Cardiovascular: Patient's skin is warm and dry. Respiratory: Airway is patent. Derm: Skin is intact. Vital Signs: 04:05 Pulse 89; Resp 18; Pulse Ox 100% on R/A; Weight 79.38 kg (R); Height 5 ft. 7 in. sg (170.18 cm) (R); 05:26 BP 125 / 76; Pulse 86; Resp 16; Temp 98; Pulse Ox 99% on R/A; rv 04:05 Body Mass Index 27.41 (79.38 kg, 170.18 cm) ED Course: 03:54 Patient arrived in ED. do 03:57 Arm band placed on. sg 04:04 Morgan Stokes, NEGRO is Primary Nurse. rv 04:04 Nate Morales MD is Attending Physician. 7 04:05 Triage completed. sg 04:28 Patient has correct armband on for positive identification. Pulse ox on. NIBP on. rv 04:51 Shoulder Right (2 View) XRAY In Process Unspecified. EDMS 05:11 Mo Ceron MD is Referral Physician. 7 05:12 Sahra Shannon MD is Referral Physician. 7 05:27 No provider procedures requiring assistance completed. Patient did not have IV access rv during this emergency room visit. 05:28 Sling applied to right arm. rv Administered Medications: 04:28 Drug: Tylenol 1000 mg Route: PO; rv 05:28 Follow up: Response: No adverse reaction rv Outcome: 05:13 Discharge ordered by . 7 05:28 Discharged to home ambulatory. rv 05:28 Condition: good 05:28 Discharge instructions given to patient, Instructed on discharge instructions, follow up and referral plans. medication usage, Demonstrated understanding of instructions, follow-up care, medications, Prescriptions given X 1. 05:28 Patient left the ED. rv Signatures: Dispatcher [employer] EDMo Bustamante RN RN sg Ogletree, Danielle do Vicente, Ronaldo RN RN Nate Groves MD MD [id number]
--- NOTE | 2019-09-09 05:13 | EDPHYS ---
Physician Documentation [facility] Name: Irving Mckeon Age: 33 yrs Sex: Female : 1985 Arrival Date: 09/09/2019 Time: 03:54 Bed 4 Private MD: ED Physician Nate Morales HPI: 09/08 04:14 This 33 yrs old Black Female presents to ER via Ambulatory with complaints of Shoulder mh7 Pain. 04:14 The patient or guardian complains of pain, that is acute. right shoulder. Context: The mh7 problem was sustained at home, resulted from an unknown reason, The patient experiences decreased range of motion, when rotates arm, The patient reports no obvious deformity. Onset: The symptoms/episode began/occurred 3 day(s) ago. Modifying factors: the symptoms are alleviated by remaining still, The symptoms are aggravated by movement, rotation of arm. Associated signs and symptoms: Pertinent negatives: abdominal pain, chest pain, diaphoresis, dyspnea, neck pain, shortness of breath, tingling. Severity of symptoms: At their worst the symptoms were moderate, yesterday, in the emergency department the symptoms have improved, moderately. Treatment prior to arrival includes: no previous treatment. The patient has experienced similar episodes in the past, multiple times. EMERGENCY DISPATCHER: 04:05 LMP 09/09/2019 sg Historical: - Allergies: 03:57 No Known Allergies; sg - PMHx: 03:57 Diabetes - NIDDM; sg - PSHx: 04:18 ; sg - Immunization history:: Adult Immunizations up to date. - Social history:: Smoking status: Patient denies any tobacco usage or history of. ROS: 04:17 Constitutional: Negative for fever, chills, and weight loss, Eyes: Negative for injury, mh7 pain, redness, and discharge, ENT: Negative for injury, pain, and discharge, Neck: Negative for injury, pain, and swelling, Cardiovascular: Negative for chest pain, palpitations, and edema, Respiratory: Negative for shortness of breath, cough, wheezing, and pleuritic chest pain, Abdomen/GI: Negative for abdominal pain, nausea, vomiting, diarrhea, and constipation, Back: Negative for injury and pain, : Negative for injury, bleeding, discharge, and swelling, Skin: Negative for injury, rash, and discoloration, Neuro: Negative for headache, weakness, numbness, tingling, and seizure, Psych: Negative for depression, anxiety, suicide ideation, homicidal ideation, and hallucinations, Allergy/Immunology: Negative for hives, rash, and allergies, Endocrine: Negative for neck swelling, polydipsia, polyuria, polyphagia, and marked weight changes, Hematologic/Lymphatic: Negative for swollen nodes, abnormal bleeding, and unusual bruising. Exam: 04:17 Constitutional: This is a well developed, well nourished patient who is awake, alert, mh7 and in no acute distress. Head/Face: Normocephalic, atraumatic. Eyes: Pupils equal round and reactive to light, extra-ocular motions intact. Lids and lashes normal. Conjunctiva and sclera are non-icteric and not injected. Cornea within normal limits. Periorbital areas with no swelling, redness, or edema. Neck: Trachea midline, no thyromegaly or masses palpated, and no cervical lymphadenopathy. Supple, full range of motion without nuchal rigidity, or vertebral point tenderness. No Meningismus. Chest/axilla: Normal chest wall appearance and motion. Nontender with no deformity. No lesions are appreciated. Cardiovascular: Regular rate and rhythm with a normal S1 and S2. No gallops, murmurs, or rubs. Normal PMI, no JVD. No pulse deficits. Respiratory: Lungs have equal breath sounds bilaterally, clear to auscultation and percussion. No rales, rhonchi or wheezes noted. No increased work of breathing, no retractions or nasal flaring. Abdomen/GI: Soft, non-tender, with normal bowel sounds. No distension or tympany. No guarding or rebound. No evidence of tenderness throughout. Back: No spinal tenderness. No costovertebral tenderness. Full range of motion. Skin: Warm, dry with normal turgor. Normal color with no rashes, no lesions, and no evidence of cellulitis. 04:17 Neuro: Awake and alert, GCS 15, oriented to person, place, time, and situation. Cranial nerves II-XII grossly intact. Motor strength 5/5 in all extremities. Sensory grossly intact. Cerebellar exam normal. Normal gait. Psych: Awake, alert, with orientation to person, place and time. Behavior, mood, and affect are within normal limits. 04:17 Musculoskeletal/extremity: Extremities: noted in the right shoulder: pain, tenderness, ROM: limited active range of motion due to pain, in the right shoulder, limited passive range of motion due to pain, in the right shoulder, Circulation is intact in all extremities. Pulses: are normal with no appreciated deficits, Perfusion: the patient is normally perfused throughout, Perfusion: the extremity is normally perfused throughout, Calf tenderness, is absent, Edema, is not appreciated, Sensation intact. Compartment Syndrome exam of affected extremity: is normal. no numbness, no tingling, no sensation deficit, no palor, no weak pulses, Joints: the right shoulder displays tenderness, Weight bearing: able to fully bear weight, without difficulty, Tendon exam: specific tendon testing normal through active and passive range of motion DVT Exam: no swelling, negative Homans' sign noted on exam, no appreciated bluish discoloration, no erythema, no increased warmth. Vital Signs: 04:05 Pulse 89; Resp 18; Pulse Ox 100% on R/A; Weight 79.38 kg (R); Height 5 ft. 7 in. sg (170.18 cm) (R); 05:26 BP 125 / 76; Pulse 86; Resp 16; Temp 98; Pulse Ox 99% on R/A; rv 04:05 Body Mass Index 27.41 (79.38 kg, 170.18 cm) MDM: 04:20 Patient medically screened. [facility] 05:09 Differential diagnosis: Anterior dislocation without fracture, Posterior dislocation mh7 without fracture, DJD, tendonitis, Arthritis, Shoulder Pain. Data reviewed: vital signs, nurses notes, lab test result(s), finger stick glucose, urinalysis, UPT: radiologic studies, plain films. Data interpreted: Pulse oximetry: on room air is 100 %. Interpretation: normal. Counseling: I had a detailed discussion with the patient and/or guardian regarding: the historical points, exam findings, and any diagnostic results supporting the discharge/admit diagnosis, lab results, radiology results, the need for outpatient follow up, to return to the emergency department if symptoms worsen or persist or if there are any questions or concerns that arise at home. Response to treatment: the patient's symptoms have markedly improved after treatment. 09/08 04:25 Order name: Urine Dipstick--Ancillary (enter results) 09/08 04:25 Order name: Urine --Ancillary (enter results) 09/08 04:14 Order name: Urine Dipstick-Ancillary (obtain specimen); Complete Time: 04:24 [facility] 09/08 04:14 Order name: Shoulder Right (2 View) XRAY [facility] 09/08 04:41 Order name: Glucose, Ancillary Testing; Complete Time: 04:56 [facility] 09/08 04:14 Order name: Urine Test (obtain specimen); Complete Time: 04:24 [facility] 09/08 04:16 Order name: Accucheck Blood Glucose; Complete Time: 04:30 [facility] Administered Medications: 04:28 Drug: Tylenol 1000 mg Route: PO; rv 05:28 Follow up: Response: No adverse reaction rv Disposition: 09/09/19 05:13 Discharged to Home. Impression: Right Shoulder Strain. - Condition is Stable. - Discharge Instructions: Shoulder Pain, [id number]. - Prescriptions for Ibuprofen 800 mg Oral Tablet - take 1 tablet by ORAL route every 8 hours As needed take with food; 15 tablet. - Medication Reconciliation Form, Thank You Letter, Antibiotic Education, Prescription Opioid Use form. - Follow up: Private Physician; When: 1 - 2 days; Reason: Worsening of condition, Recheck today's complaints, Continuance of care, Re-evaluation by your physician. Follow up: Mo Ceron MD; When: 2 - 3 days; Reason: Worsening of condition, Recheck today's complaints. Follow up: Sahra Shannon MD; When: 2 - 3 days; Reason: Worsening of condition, Recheck today's complaints. - Problem is an acute exacerbation. - Symptoms have improved. Signatures: Dispatcher [employer] [facility] Mo Taylor, RN RN Morgan Musnon RN RN Nate Groves MD MD 7 Corrections: (The following items were deleted from the chart) 05:13 05:13 09/09/2019 05:13 Discharged to Home. Impression: Right Shoulder Strain. Condition 7 is Stable. Forms are Medication Reconciliation Form, Thank You Letter, Antibiotic Education, Prescription Opioid Use. Follow up: Private Physician; When: 1 - 2 days; Reason: Worsening of condition, Recheck today's complaints, Continuance of care, Re-evaluation by your physician. Follow up: Mo Ceron; When: 2 - 3 days; Reason: Worsening of condition, Recheck today's complaints. Follow up: Sahra Shannon; When: 2 - 3 days; Reason: Worsening of condition, Recheck today's complaints. mh7 05:28 05:13 09/09/2019 05:13 Discharged to Home. Impression: Right Shoulder Strain. Condition rv is Stable. Forms are Medication Reconciliation Form, Thank You Letter, Antibiotic Education, Prescription Opioid Use. Follow up: Private Physician; When: 1 - 2 days; Reason: Worsening of condition, Recheck today's complaints, Continuance of care, Re-evaluation by your physician. Follow up: Mo Ceron; When: 2 - 3 days; Reason: Worsening of condition, Recheck today's complaints. Follow up: Sahra Shannon; When: 2 - 3 days; Reason: Worsening of condition, Recheck today's complaints. Problem is an acute exacerbation. Symptoms have improved. mh7
[2019-09-09 05:18] LABS: Urine Blood 3+ (NEG); Urine Glucose 3+ (NEG); Urine Protein 1+ (NEG); Urine Specific Gravity >1.030 (1.005-1.030); Urine pH 5.5 (5.0-7.0)
[2019-09-09 05:47] VITALS: BP 125/76; TEMP 98; O2SAT 99
--- NOTE | 2019-09-09 12:37 | RAD REPORT ---
EXAM DESCRIPTION: RAD - Shoulder Right 2 View - 09/09/2019 4:52 am CLINICAL HISTORY: PAIN COMPARISON: No comparisons FINDINGS: No fracture or dislocation seen. No aggressive marrow pattern. Prominent inferior acromial spur present.
== END 2019-09-09 05:28 | disposition home or self-care (01) ==
LOC: ER 03:52
DX: S46.911A Strain of unspecified muscle, fascia and tendon at shoulder and upper arm level, right arm, initial encounter (principal); X58.XXXA Exposure to other specified factors, initial encounter; Y93.9 Activity, unspecified; Y92.009 Unspecified place in unspecified non-institutional (private) residence as the place of occurrence of the external cause
CPT/HCPCS: 81003; 81025; 82947; 99284

== ENCOUNTER 2019-11-18 13:28 | Emergency (ER) | payer BC ==
--- OUTSIDE RECORDS SUMMARY | 2019-11-18 13:31 | XMS REPORT | Continuity of Care Document ---
:1985 Author Organization [facility] t Address [address] [place] [address] Care Team Providers Name Role Phone Zara Murray Attending Clinician EULOGIO Attending Clinician Unavailable COTY Attending Clinician Unavailable AKASH Attending Clinician Unavailable ESTRADA Attending Clinician Unavailable Keaton Vazquez Attending Clinician MILENA Attending Clinician Unavailable Problems Condition Condition Condition Status Onset Resolution Last Treating Co mments Source Name Details Category Date Date Treatment Clinician Date BACK PAIN Diagnosis Active 2016-11-16 Memoria 11-16 11:19:00 l BACK 00:00: [place] PAIN 00 Active 11/16/[address] [facility] ALLERGIC Diagnosis Active 2016-05-10 M emoria REACTION - 23:30:00 l ALLERGIC 00:00: Ish n REACTION 00 Active 05/10/2016 [facility] Problem Active Unive rs discharge discharge [id number] [...] pain 11-16 04:22:32 04:22:32 l Other 05:00: [place] chest pain 00 11/16/2016 11/19/[address] [facility] [place] [place] Hyperglyce Problem 2016-11-19 2016-11-19 Delia kirsten, 11-16 04:22:32 04:22:32 l unspecifie 05:00: Ish n d Hyperglyce 00 kirsten, unspecifie d 11/16/2016 11/19/[address] [facility] [place] Elevated Problem 2016-2016-05-13 2016-05-13 Memoria blood-pres 05-10 03:32:39 03:32:39 l sure Elevated 05:00: Ish correa reading, blood-pres 00 without sure diagnosis reading, of without hypertensi diagnosis on of hypertensi on 05/10/2016 05/13/2016 Taylor Candidiasi Problem 2016-2016-05-13 2016-05-13 Memoria s of vulva 05-10 03:32:39 03:32:39 l and vagina 05:00: Ish correa Candidiasi 00 s of vulva and vagina 05/10/2016 05/13/2016 [facility] Allergies, Adverse Reactions, Alerts This patient has no known allergies or adverse reactions. Family History Family Member Diagnosis Comments Start Date Stop Date Source Mother Family history of [facility] hypertension Physicians Father Family history of [facility] diabetes mellitus Physici ans Social History Smoking Status Start Date Stop Date Source Social History [facility] Medications Ordered Filled Start Stop Current Ordering [...] Chloride 11-16 1000 l 0.9% 16:35: ml/hr, [place] (Bolus) IV 00 Infuse Over: 1 hr, [...] daily ity of Monitor Monitor 00:00: M.D. Plan Me Up System System 00 Physici w/Device w/Device ans Kit Kit Lancets Lancets Yes OSSAMA 4 TIMES A Univers 7-19 AL-TAHER DAY ity of 00:00: M.D. [place] 00 Physici ans Blood Blood Yes OSSAMA Q0.25D TEST 4 Unive rs Glucose Glucose 09-08 AL-TAHER TIMES ity of Test In Test In 00:00: M.D. DAILY. [place] Vitro Strip Vitro Strip 00 P hysici [...] ity of KwikPen KwikPen 00:00: M.D. daily [place] (70-30) 100 (70-30) 100 00 MDD:50 Physici UNIT/ML UNIT/ML TDD:24 ans Subcutaneou Subcutaneou s s Suspension Suspension Pen-injecto Pen-injecto r r Pen [place] Pen [place] Yes OSSAMA USE UP TO Univers 31G X 5 MM 31G X 5 MM 5-08 AL-TAHER 3 TIMES ity of 00:00: M.D. DAILY [place] 00 Physici ans Amoxicillin Amoxicillin Yes SHIFAT [...] Diastolic (mm Hg) 2016-11-16 22:10:00 Mem orial [place] Respitory Rate 2016-11-16 22:10:00 Evie Allred Heart Rate 2016-11-16 22:10:00 [facility] [place] Respitory Rate 2016-11-16 20:00:00 Evie Allred Systolic (mm Hg) 2016-11-16 20:00:00 Jose tahira [place] Diastolic (mm Hg) 2016-11-16 20:00:00 Mem orial [place] Temperature Oral (F) 2016-11-16 20:00:00 98.2 F [facility] Heart Rate 2016-11-16 20:00:00 [facility] [place] Systolic (mm Hg) 2016-11-16 17:29:00 Jose rial Red Diastolic (mm Hg) 2016-11-16 17:29:00 Mem [facility] Heart Rate 2016-11-16 17:29:00 [facility] Respitory Rate 2016-11-16 17:29:00 Memori al [place] Weight 2016-11-16 15:24:00 [facility] [place] BMI Calculated 2016-11-16 15:24:00 Memori al [place] Height 2016-11-16 15:24:00 167.64 cm [facility] Temperature Oral (F) 2016-11-16 15:24:00 98.2 F [facility] Systolic (mm Hg) 2016-05-11 03:22:00 Jose rial Red Diastolic (mm Hg) 2016-05-11 03:22:00 Mem orial Red Temperature Oral (F) 2016-05-11 03:15:00 97.1 F [facility] [place] Heart Rate 2016-05-11 03:00:00 [facility] [place] Respitory Rate 2016-05-11 03:00:00 Memori al Red Systolic (mm Hg) 2016-05-11 03:00:00 Jose rial [place] Diastolic (mm Hg) 2016-05-11 03:00:00 Mem orial Red Respitory Rate 2016-05-11 02:00:00 Memori al [place] Systolic (mm Hg) 2016-05-11 02:00:00 Jose rial Red Diastolic (mm Hg) 2016-05-11 02:00:00 Mem orial [place] Respitory Rate 2016-05-11 01:00:00 Memori al [place] Weight 2016-05-10 20:47:00 [facility] Temperature Oral (F) 2016-05-10 20:47:00 99.8 F [facility] [place] Height 2016-05-10 20:47:00 170.18 cm [facility] [place] BMI Calculated 2016-05-10 20:47:00 [facility] Heart Rate 2016-05-10 20:47:00 [facility] Procedures Procedure Date / Time Performed Performing Clinician [facility] e History of [facility] [place] [facility] Physicians section [facility] Ish n Encounters Start End Encounter Admission Attending Care Care Encounter Source Date/Time Date/Time Type Type Clinicians Facility Department ID 2016-11-16 2016-11-16 [id number] 10:18:00 17:22:00 Berna Zuñiga 01 2016-10-28 2016-10-28 Arturo KRISHNAN, [facility] UTP [id number] Univers 13:00:00 13:00:00 t; JOSE MITCHELL [place] STEPHEN Physic i RD ans 2016-10-06 2016-10-06 Arturo ANSARI, [facility] UTP [id number] Univers 10:00:00 10:00:00 t; Bo RUTLEDGE M.D. [place] Ronnell RUTLEDGE M.D. ans 2016-09-09 2016-09-09 Arturo ANSARI, NISHA UTP [id number] Univers 08:20:00 08:20:00 t; Bo RUTLEDGE M.D. [place] Ronnell RUTLEDGE M.D. ans 2016-09-08 2016-09-08 Arutro ANSARI, NISHA UTP [id number] Univers 14:20:00 14:20:00 t; Bo RUTLEDGE M.D. [place] Ronnell RUTLEDGE M.D. ans 2016-06-11 2016-06-11 NISHA Baig UTP [id number] Univers 09:30:00 09:30:00 t; EDIN BUSTOS NP it y of SHIFAT, NP [place] Physicnicolette ans 2016-05-18 2016-05-18 NISHA Mccloud UTP [id number] Univers 09:30:00 09:30:00 t; Ricco DA SILVA M.D. [place] Ronnell DA SILVA M.D. ans 2016-05-10 2016-05-[address] [facility] [id number] 15:41:00 22:39:00 [place] 00 [place] 2016-04-27 2016-04-27 NISHA Mccloud UTP [id number] Univers 09:30:00 09:30:00 t; Ricco DA SILVA M.D. [place] Ronnell DA SILVA M.D. ans 2016-04-05 2016-04-05 AppointNISHA Fritz UTP [id number] Univers 08:30:00 08:30:00 t; Ricco DA SILVA M.D. [place] Ronnell DA SILVA M.D. ans 2016-04-02 2016-04-02 AppointNISHA Oliva UTP [id number] Univers 10:00:00 10:00:00 t; Bo RUTLEDGE M.D. [place] Ronnell RUTLEDGE M.D. ans 2016-03-30 2016-03-30 Appointmen PEDRO ABBOTT, NISHA UTP [id number] Univers 09:00:00 09:00:00 t; Katarina ABBOTT M.D. [facility] [place] [facility] 2016-02-27 2016-02-27 AppointNISHA Oliva UTP [id number] Univers 09:30:00 09:30:00 t; Bo RUTLEDGE M.D. [place] Ronnell RUTLEDGE M.D. ans 2016-02-19 2016-02-19 Appointmen PEDRO ABBOTT, NISHA UTP [id number] Univers 09:30:00 09:30:00 t; Katarina ABBOTT M.D. [facility] [place] [facility] 2016-02-13 2016-02-13 AppointNISHA Oliva UTP [id number] Univers 14:00:00 14:00:00 t; Bo RUTLEDGE M.D. [place] Ronnell RUTLEDGE M.D. [facility] 2016-02-13 2016-02-13 Appointmen PEDRO ABBOTT, NISHA UTP [id number] Univers 10:30:00 10:30:00 t; Katarina ABBOTT M.D. [facility] [place] [facility] 2016-02-12 2016-02-12 AppointPEDRO Perales, NISHA UTP [id number] Univers 09:30:00 09:30:00 t; Katarina ABBOTT M.D. [facility] Results Test Description Test Time Test Comments Results Result Comments Source CARDIAC ENZYMES 2016-11-16 <0.02 [facility] [place] 19:10:00 CARDIAC ENZYMES 2016-11-16 <1.1 [facility] 16:01:00 CARDIAC ENZYMES 2016-11-16 <1.0 [facility] [place] 16:01:00 CARDIAC ENZYMES 2016-11-16 93 [facility] [place] 16:01:00 CARDIAC ENZYMES 2016-11-16 <0.02 [facility] [...] code = MCH) 27.6 pg 27.0-31.0 [facility] [id number] 16:01:004.59[facility]ann[facility]OLOGY 2016-11-16 16:01:0012.6[facility] [id number] 16:01:0038.1[facility] [id number] 16:01:006.0[facility] [id number] 16:01:95051Ecxtkmqi TwervyeFJAQDUMMOH4449-50-20 16:01:009.3[facility] [id number] 16:01:0033.2[facility] [id number] 16:01:00 13.9[facility] [id number] 16:01:00Negative (11/16/16 11:01 AM)[facility] [id number] 16:01:00Moderate *ABN*(11/16/16 11:01 AM)[facility] [id number] 16:01:007[facility] [place] URINE AND [id number] 16:01:006[facility] [id number] 16:01:00Clear (11/16/16 11:01 AM)[facility] [id number] 16:01:00Light Yellow *NA*(11/16/16 11:01 AM)[facility] STOOL 2016-11-16 16:01:005.5[facility] [id number] 16:01:001.026 [facility] [id number] 16:01:00Negative (11/16/16 11:01 AM) [facility] [id number] 16:01:00Negative *NA*(11/16/16 11:01 AM)[facility] [id number] 16:01:00Negative (11/16/16 11:01 AM) [facility]LE[facility] [id number] 02:27:00Positive 1*ABN*(05/10/16 9:27 PM)[facility] [id number] 02:27:00Negative 2(05/10/16 9:27 PM)[facility] [id number] 02:27:00Genital *NA*(05/10/16 9:27 PM)[facility] [id number] 02:26:00 Endocervix *NA*(05/10/16 9:26 PM)[facility] [id number] 02:26:00Negative *NA*(05/10/16 9:26 PM)[facility] DIAGNOSTIC 2016-05-11 02:26:00Negative *NA*(05/10/16 9:26 PM)[facility] STOOL 2016-05-11 00:25:00Negative (05/10/16 7:25 PM)[facility] STOOL 2016-05-11 00:25:000.2[facility] [id number] 00:25:00Negative (05/10/16 7:25 PM)[facility] [id number] 00:25:00Negative (05/10/16 7:25 PM)[facility] [id number] 00:25:00<=1.005 *NA*(05/10/16 7:25 PM)[facility] [id number] 00:25:00Clear (05/10/16 7:25 PM)[facility] [id number] 00:25:00Negative *NA*(05/10/16 7:25 PM)[facility] [id number] 00:25:00Negative *NA*(05/10/16 7:25 PM)[facility] [id number] 00:25:00Negative (05/10/16 7:25 PM)[facility] [id number] 00:25:00 Test Item Value Reference Range Interpretation Comments UA pH (test code = UA pH) 6.5 1 5.0-8.0 [facility] [id number] 00:25:00None Seen (05/10/16 7:25 PM) [facility] [id number] 00:25:00None Seen (05/10/16 7:25 PM) [facility] [id number] 00:25:00Negative (05/10/16 7:25 PM)[facility]
--- OUTSIDE RECORDS SUMMARY | 2019-11-18 13:31 | XMS REPORT | Continuity of Care Document ---
:1985 Author Organization [facility] Red Information [employer] Care Team Providers Name Role Phone [employer] Unavailable Un available Problems Problem Status Onset Classification Date Comments Sourc e Date Reported Other chest pain 11/17/19 11/19/[address] Hyperglycemia, 11/17/19 11/19/2016 T he unspecified [address] [place] [address] s BACK PAIN Active 11/17/19 [place] [address] [place],[facility] Elevated 05/11/19 05/13/2016 [facility] blood-pressure 17 reading, without diagnosis of hypertension Candidiasis of 05/11/19 05/13/2016 [facility] vulva and vagina 17 ALLERGIC Active 05/11/[address] REACTION 17 Diabetes Active Problem 11/19/2016 mellitus [place], (disorder) [place] Medications Medication Details Route Status Patient Ordering Order Source Instructions Provider Date Insulin 10 unit, Inactive The regular Route: SUB-Q, [facility] ONCE, Dosing Weight 89.091, kg, Priority: STAT, Start date: 11/16/16 11:36:00 CDT, Stop date: 11/16/16 11:36:00 CDT Sodium 1,000 mL, 1000 Inactive The Chloride 0.9% ml/hr, Infuse [facility] IV Over: 1 hr, Route: IV, 1,000, Drug form: INJ, ONCE, Priority: STAT, Dosing Weight 89.091 kg, Start date: 11/16/16 11:35:00 CDT, Duration: 1 doses or times, Stop date: 11/16/16 11:35:00 CDT Saline Flush Notes: Inactive The 0.9% preservative [facility] [place] free. Miconazole 1 appl, VAG, Active Nitrate [...] <0.02 0.00 - 11/16 The ENZYMES 0. [place] CARDIAC CK MB Index <1.1 0.0 - 2.5 11/16 The ENZYMES [place] CARDIAC CK MB <1.0 0.5 - 3.6 11/16 The ENZYMES [place] CARDIAC Total CK 93 12 - 191 11/16 The ENZYMES [place] CARDIAC Troponin-I <0.02 0.00 - 11/16 The ENZYMES 0. [place] CHEM PANEL eGFR 71 11/16 Result Comment: [place] eGFR is calculated using the CKD-EPI formula. [...] PANEL ALT 16 0 - 65 11/16 [place] CHEM PANEL A/G Ratio 0.9 0.7 - 1.6 11/16 [place] CHEM PANEL Alk Phos 86 39 - 136 11/16 [place] CHEM PANEL AST 7 0 - 37 11/16 [place] CHEM PANEL Globulin 3.6 2.7 - 4.2 11/16 [place] CHEM PANEL Albumin Lvl 3.3 3.5 - 5.0 11/16 The [place] CHEM PANEL Total 6.9 6.4 - 8.4 11/16 The Protein [place] CHEM PANEL Bili Total 0.2 0.2 - 1.3 11/16 The [place] CHEM PANEL Glucose Lvl 637 70 - 99 11/16 Result The Comment: [place] Critical Result(s) called to sage hernandez at 11/16/2016 11:31 by dena. Read back OK. CHEM PANEL AGAP 14.3 10.0 - 11/16 The 20.0 [place] CHEM PANEL Calcium Lvl 8.7 8.5 - 10.5 11/16 The [place] CHEM PANEL B/C Ratio 4 6 - 25 11/16 The [place] CHEM PANEL Creatinine 1.20 0.50 - 11/16 The Lvl 1.40 [place] CHEM PANEL Sodium Lvl 130 135 - 145 11/16 The [place] CHEM PANEL CO2 23 24 - 32 11/16 The [place] CHEM PANEL Potassium 4.3 3.5 - 5.1 11/16 The Lvl /2016 [place] CHEM PANEL BUN 5 7 - 22 11/16 The [place] CHEM PANEL Chloride Lvl 97 95 - 109 11/16 The [place] HEMATOLOGY D-Dimer <0.27 11/16 The [place] HEMATOLOGY Monocytes 6.1 2.0 - 12.0 11/16 The [place] HEMATOLOGY Eosinophils 1.9 0.0 - 4.0 11/16 The [place] HEMATOLOGY Basophils 1.1 0.0 - 1.0 11/16 The [place] HEMATOLOGY Lymphocytes 32.4 20.0 - 11/16 The 40.0 [place] HEMATOLOGY Segs 58.5 45.0 - 11/16 The 75.0 [place] HEMATOLOGY Basophils # 0.1 0.0 - 0.2 11/16 The [place] HEMATOLOGY Segs-Bands # 3.5 1.5 - 8.1 11/16 The [place] HEMATOLOGY Lymphocytes 1.9 1.0 - 5.5 11/16 The # [place] HEMATOLOGY Monocytes # 0.4 0.0 - 0.8 11/16 MH The /2016 [place] HEMATOLOGY Eosinophils 0.1 0.0 - 0.5 11/16 The # /2016 [place] HEMATOLOGY MCV 83.0 80.0 - 11/16 The 98.0 /2016 [place] HEMATOLOGY MCH 27.6 27.0 - 11/16 The 31.0 /2016 [place] HEMATOLOGY RBC 4.59 4.20 - 11/16 The 5.40 /2016 [place] HEMATOLOGY Hgb 12.6 12.0 - 11/16 The 16.0 /2016 [place] HEMATOLOGY Hct 38.1 36.0 - 11/16 The 48.0 /2016 [place] HEMATOLOGY WBC 6.0 3.7 - 10.4 11/16 The /2016 [place] HEMATOLOGY Platelet 298 133 - 450 11/16 The [place] HEMATOLOGY MPV 9.3 7.4 - 10.4 11/16 The [place] HEMATOLOGY MCHC 33.2 32.0 - 11/16 The 36.0 [place] HEMATOLOGY RDW 13.9 11.5 - 11/16 The 14.5 [place] URINE AND UA <=1.0 0.1 - 1.0 11/16 The STOOL Urobilinogen mg/dL /2016 [place] URINE AND UA Mucus Few /LPF None Seen 11/16 The STOOL /LPF /2016 [place] URINE AND UA Nitrite Negative Negative 11/16 The [facility] (11/16/16 11:01 AM) /2016 [place] [facility] URINE AND UA Leuk Est Moderate Negative 11/16 The STOOL *ABN* /2016 [place] (11/16/16 11:01 AM) URINE AND UA RBC 7 0 - 2 11/16 The STOOL /2016 [place] URINE AND UA WBC 6 0 - 5 11/16 The STOOL /2016 [place] URINE AND UA Sq Epi Many /LPF Few /LPF 11/16 The STOOL /2016 [place] URINE AND UA Turbidity Clear Clear 11/16 The [facility] (11/16/16 11:01 AM) /2016 [place] [facility] URINE AND UA Color Light Yellow Yellow 11/16 The STOOL *NA* /2016 [place] (11/16/16 11:01 AM) URINE AND UA pH 5.5 5.0 - 8.0 11/16 The STOOL /2016 [place] URINE AND UA Spec Grav 1.026 <=1.030 11/16 The STOOL /2016 [place] URINE AND UA Glucose >=1000 Negative 11/16 The STOOL mg/dL mg/dL /2016 [place] URINE AND UA Protein Negative Negative 11/16 The STOOL mg/dL mg/dL [place] URINE AND UA Blood Negative Negative 11/16 The STOOL (11/16/16 11:01 AM) /2016 [facility] and URINE AND UA Bili Negative Negative 11/16 The STOOL *NA* /2016 [place] (11/16/16 11:01 AM) URINE AND UA Ketones 10 mg/dL Negative 11/16 The STOOL mg/dL /2016 [place] URINE CHEM U Preg Negative Negative 11/16 The (11/16/16 11:01 AM) [facility] MOLECULAR HSV 1 by PCR Positive 1 Negative 05/11 Result DIAGNOSTIC *ABN* Comment: This [facility] (05/10/16 9:27 PM) sample was POSITIVE for [...] 0.1 - 1.0 05/11 [facility]OOL Urobilinogen /2016 [facility] URINE AND UA Nitrite Negative Negative 05/11 [facility] (05/10/16 7:25 PM) /2016 [place] [facility] URINE AND UA Blood Negative Negative 05/11 [facility] (05/10/16 7:25 PM) [place] URINE AND UA Spec Grav <=1.005 <=1.030 05/11 STOOL *NA* /2016 [facility] (05/10/16 7:25 PM) URINE AND UA Turbidity Clear Clear 05/11 [facility] (05/10/16 7:25 PM) [place] [facility] URINE AND UA Color STRAW 05/11 STOOL /2016 [place] URINE AND UA Bili Negative Negative 05/11 STOOL *NA* /2016 [facility] (05/10/16 7:25 PM) URINE AND UA Ketones Negative Negative 05/11 [facility]OOL *NA* /2016 [facility] (05/10/16 7:25 PM) URINE AND UA Glucose >=1000 Negative 05/11 [facility] mg/dL mg/dL /2016 [place] URINE AND UA Protein Negative Negative 05/11 [facility] (05/10/16 7:25 PM) [place] [facility] URINE AND UA pH 6.5 5.0 - 8.0 05/11 STOOL /2016 [place] URINE AND UA WBC 0-2 /HPF None Seen 05/11 [facility] /HPF /2016 [facility] URINE AND UA RBC None Seen 0 - 2 05/11 [facility] (05/10/16 7:25 PM) [place] URINE AND UA Bacteria None Seen None Seen 05/11 [facility] (05/10/16 7:25 PM) [place] [facility] URINE AND UA Sq Epi Rare /LPF Few /LPF 05/11 STOOL [facility] URINE CHEM U Preg Negative Negative 05/11 (05/10/16 7:25 PM) [facility] [facility] Pathology Reports No Data Provided for This Section Diagnostic Reports Report Value Date Source Chest 1view DX Clinical Indication: - chest pain. 11/16/2016 [facility] Comparison: None. TECHNIQUE: AP 1 view chest radiograph was perfor med. FINDINGS: Lung volumes are low. Lungs are clear. Cardiomediastinal silhouette is within normal limits for exam technique. No acute osseous abnormalities. IMPRESSION: Low lung volumes related to technique. No focal consolidation. SL: [id number] Consultation Notes No Data Provided for This Section Discharge Summaries No Data Provided for This Section History and Physicals No Data Provided for This Section Vital Signs Vital Sign Value Date Comments Source Systolic (mm Hg) 127 11/16/2016 [facility] [place] Diastolic (mm Hg) 74 11/16/2016 [facility] [place] Respitory Rate 24 11/16/2016 [facility] [place] Heart Rate 80 11/16/2016 [facility] [place] [facility] Respitory Rate 26 11/16/2016 [facility] [place] Systolic (mm Hg) 125 11/16/2016 [facility] [place] Diastolic (mm Hg) 82 11/16/2016 [facility] [place] Temperature Oral (F) 98.2 F 11/16/2016 [place] Heart Rate 75 11/16/2016 [facility] [place] Systolic (mm Hg) 132 11/16/2016 [facility] [place] [facility] Diastolic (mm Hg) 81 11/16/2016 [facility] [place] Heart Rate 82 11/16/2016 [facility] [place] Respitory Rate 16 11/16/2016 [facility] Weight 89.091 11/16/2016 [facility] [place] BMI Calculated 31.7 11/16/2016 [facility] Height 167.64 cm 11/16/2016 [facility] [place] Temperature Oral (F) 98.2 F 11/16/2016 [place] Systolic (mm Hg) 144 05/11/2016 [facility] t Diastolic (mm Hg) 82 05/11/[address] [facility] st Temperature Oral (F) 97.1 F 05/11/2016 [place] Heart Rate 76 05/11/2016 [place] Respitory Rate 18 05/11/2016 [place] Systolic (mm Hg) 133 05/11/[place] [facility] Diastolic (mm Hg) 100 05/11/[address] Respitory Rate 20 05/11/2016 [place] Systolic (mm Hg) 130 05/11/2016 [place] [facility] Diastolic (mm Hg) 83 05/11/[address] [facility] Resp[facility] Rate 18 05/11/2016 [place] Weight 99.545 05/10/2016 [facility] Temperature Oral (F) 99.8 F 05/10/2016 [place] Height 170.18 cm 05/10/2016 [facility] BMI Calculated 34.37 05/10/2016 [facility] Heart Rate 101 05/10/2016 [facility] Encounters Location Location Encounter Encounter Reason Attending ADM DC Stat us Source Details Type Number For Provider Date Date [facility] [id number] [place] 05/10 05/11 Red Vazquez /2016 [facility] [id number] [place] 11/16 11/16 Aftab Murray Guicho gavin [facility] Procedures Procedure Code Date Perfomer Comments Source section [id number] [facility] Assessment and Plan No Data Provided for This Section Plan of Care No Data Provided for This Section Social History Social History Date Source Social History TypeResponse 11/16/2016 [place] [facility] hilda Smoking Status Never smoker; Ready to change: No; Emilia rns about tobacco use in household: No; Exposure to Tobacco Smoke None; Cigarette Smoking Last 365 Days No; Reg Smoking Cessation Counseling No Social History TypeResponse 05/11/2016 [facility] Smoking Status Never smoker; Exposure to Tobacco Smoke None; Cigarette Smoking Last 365 Days No; Reg Smoking Cessation Counseling No Family History No Data Provided for This Section Advance Directives No Data Provided for This Section Functional Status No Data Provided for This Section
[2019-11-18] MEDS ORDERED: NA CHLORIDE 0.9% 1,000 ML ONE (14:12)
[2019-11-18 14:21] LABS: Absolute Lymphocytes (CBC) 2.6 K/uL (0.7-4.9); Basophils % 0.2 % (0-1.3); Hematocrit 34.1 % (36.0-45.0); Lymphocytes % 39.9 % (15.3-44.8); MPV 8.5 fL (7.6-11.3); RBC Red Blood Cell Count 4.79 M/uL (3.86-4.86)
[2019-11-18 14:38] LABS: ALT/SGPT 12 U/L (12-78); AST/SGOT 10 U/L (15-37); Albumin 4.1 g/dL (3.4-5.0); Alkaline Phosphatase 82 U/L (45-117); BUN Blood Urea Nitrogen 11 mg/dL (7-18); Bicarbonate 24 mmol/L (21-32); Bilirubin Direct < 0.1 mg/dL (0-0.2); Bilirubin Total 0.2 mg/dL (0.2-1.0); Glucose Level 126 mg/dL (74-106); Lipase 88 U/L (73-393); Potassium 3.6 mmol/L (3.5-5.1); Protein, Total 8.5 g/dL (6.4-8.2); Sodium Level 139 mmol/L (136-145)
--- NOTE | 2019-11-18 15:40 | RAD REPORT ---
EXAM DESCRIPTION: CT - Abdomen Pelvis W Contrast - 11/18/2019 3:19 pm CLINICAL HISTORY: Constipation;Abd pain COMPARISON: No comparisons TECHNIQUE: Biphasic, helical CT imaging of the abdomen and pelvis was performed following 100 ml non -ionic IV contrast. No oral contrast administered. All CT scans are performed using dose optimization technique as appropriate and may include automated exposure control or mA/KV adjustment according to patient size. FINDINGS: No suspicious findings in the lung bases. The liver, spleen, and pancreas show no suspicious findings. Gallbladder is contracted. No active gal lbladder process suspected. No biliary tree dilatation. Symmetric renal function is seen with no hydronephrosis or suspicious renal mass. No pyelonephritis o r acute parenchymal process. No bladder abnormalities. No adrenal abnormalities. No uterine or ovaria n acute finding. No gastric dilatation or wall thickening. No dilated small bowel loops. There are several fluid-fille d distal small bowel loops. Appendix is normal. Large amount of stool is present distending the colon from cecum through descending colon. Rectum and sigmoid portions of the colon are decompressed. At t he transition point between the descending and sigmoid colon there is no identifiable mass or wall th ickening. No free air, free fluid or inflammatory stranding. No mass or bulky lymphadenopathy. A 2.6 centimeter fat only umbilical hernia present. No suspicious bony findings. IMPRESSION: No bowel obstruction, free air or surgically emergent finding. Large stool volume distends the colon from cecum to descending colon. At the transition between the d escending colon and decompressed sigmoid colon there is no identifiable mass, wall thickening or acut e process seen.
--- NOTE | 2019-11-18 15:49 | ER ---
Nurse's Notes [facility] Name: Irving Mckeon Age: 34 yrs Sex: Female : 1985 Arrival Date: 11/18/2019 Time: 13:28 Bed 5 Private MD: Diagnosis: Constipation Presentation: 11/17 13:38 Chief complaint: Patient states: hasn't had a good BM in like 3-4 weeks, now having mid bb abd pain and can't lay on her stomach, feels the urge to use bathroom but can't. Coronavirus screen: At this time, the client does not indicate any symptoms associated with coronavirus-19. Ebola Screen: Patient negative for fever greater than or equal to 101.5 degrees Fahrenheit, and additional compatible Ebola Virus Disease symptoms Patient denies exposure to infectious person. Patient denies travel to an Ebola-affected area in the 21 days before illness onset. No symptoms or risks identified at this time. Initial Sepsis Screen: Does the patient meet any 2 criteria? No. Patient's initial sepsis screen is negative. Does the patient have a suspected source of infection? No. Patient's initial sepsis screen is negative. Risk Assessment: Do you want to hurt yourself or someone else? Patient reports no desire to harm self or others. Onset of symptoms was October 23, 2019. 13:38 Method Of Arrival: Ambulatory bb 13:38 Acuity: BLADIMIR 3 bb Historical: - Allergies: 13:40 No Known Allergies; bb - Home Meds: 13:40 None [Active]; bb - PMHx: 13:40 Diabetes - NIDDM; bb - PSHx: 13:40 ; bb - Immunization history:: Adult Immunizations. - Social history:: Smoking status: Patient denies any tobacco usage or history of. Screenin:25 Abuse screen: Denies threats or abuse. Denies injuries from another. Nutritional ph screening: No deficits noted. Tuberculosis screening: No symptoms or risk factors identified. Fall Risk None identified. Assessment: 14:23 General: Appears in no apparent distress. comfortable, well groomed, Behavior is calm, ph cooperative, appropriate for age, Denies fever, feeling ill. Pain: Complains of pain in abdomen Pain currently is 2 out of 10 on a pain scale. Quality of pain is described as dull, "discomfort". Neuro: Level of Consciousness is awake, alert, obeys commands, Oriented to person, place, time, situation. Cardiovascular: Capillary refill < 3 seconds in bilateral fingers Patient's skin is warm and dry. Respiratory: Airway is patent Respiratory effort is even, unlabored. GI: Abdomen is round non-distended, Reports lower abdominal pain, upper abdominal pain, bloating, constipation, Patient currently denies nausea, vomiting. Derm: Skin is intact, is healthy with good turgor, Skin is pink, warm \\T\\ dry. Musculoskeletal: Circulation, motion, and sensation intact. Range of motion: intact in all extremities. 15:30 Reassessment: Patient appears in no apparent distress at this time. Patient and/or ph family updated on plan of care and expected duration. Pain level reassessed. Patient is alert, oriented x 3, equal unlabored respirations, skin warm/dry/pink. 16:28 Reassessment: Patient appears in no apparent distress at this time. Patient and/or ph family updated on plan of care and expected duration. Pain level reassessed. Patient is alert, oriented x 3, equal unlabored respirations, skin warm/dry/pink. Vital Signs: 13:38 BP 124 / 98; Pulse 92; Resp 16; Temp 98.6; Pulse Ox 100% on R/A; Weight 78.47 kg; bb Height 5 ft. 7 in. (170.18 cm); Pain 3/10; 15:36 BP 127 / 86; Pulse 86; Resp 18; Pulse Ox 100% on R/A; ph 16:29 BP 123 / 82; Pulse 78; Resp 20; Temp 98.1; Pulse Ox 100% on R/A; ph 13:38 Body Mass Index 27.10 (78.47 kg, 170.18 cm) bb ED Course: 13:28 Patient arrived in ED. ds1 13:40 Triage completed. bb 13:40 Arm band placed on. bb 13:45 Jayy Sweeney NP is PHCP. pm1 13:45 Sheldon Ortiz MD is Attending Physician. pm1 13:54 Amanda Acosta RN is Primary Nurse. ph 14:10 Initial lab(s) drawn, by ct, sent to lab. Inserted saline lock: 22 gauge in left ph forearm, using aseptic technique. Blood collected. 14:25 Patient has correct armband on for positive identification. Bed in low position. Call ph light in reach. Side rails up X 1. Pulse ox on. NIBP on. Door closed. Noise minimized. Warm blanket given. 14:36 Urine Dipstick--Ancillary (enter results) Sent. sv 14:36 Basic Metabolic Panel Sent. sv 14:36 CBC with Diff Sent. sv 14:36 Hepatic Function Sent. sv 14:36 Lipase Sent. sv 14:58 Urine --Ancillary (enter results) Sent. sv 16:30 No provider procedures requiring assistance completed. IV discontinued, intact, ph bleeding controlled, No redness/swelling at site. Pressure dressing applied. Administered Medications: 14:10 Drug: NS 0.9% 1000 ml Route: IV; Rate: 1000 ml; Site: left forearm; ph 16:29 Follow up: Response: No adverse reaction; IV Status: Completed infusion; IV Intake: ph 1000ml Intake: 16:29 IV: 1000ml; Total: 1000ml. ph Outcome: 15:49 Discharge ordered by MD. pm1 16:30 Patient left the ED. ph 16:30 Discharged to home ambulatory. ph 16:30 Condition: good 16:30 Discharge instructions given to patient, Instructed on discharge instructions, follow up and referral plans. medication usage, Demonstrated understanding of instructions, follow-up care, medications, Prescriptions given X 1. Signatures: Mary Oliveros, Traci Cespedes RN ds1 Shobha Merino, Amanda Coleman RN, RN RN ph Marinas, Patrick, DOMINIQUE BUSINESS ACCOUNT MANAGER pm1
--- NOTE | 2019-11-18 15:49 | EDPHYS ---
Physician Documentation [facility] Name: Irving Mckeon Age: 34 yrs Sex: Female : 1985 Arrival Date: 11/18/2019 Time: 13:28 Bed 5 Private MD: ED Physician Sheldon Ortiz HPI: 11/17 13:56 This 34 yrs old Black Female presents to ER via Ambulatory with complaints of Abdominal pm1 Pain. 13:56 The patient presents with abdominal pain in the upper abdomen. Onset: The pm1 symptoms/episode began/occurred 1 week(s) ago. The symptoms do not radiate. Associated signs and symptoms: Pertinent positives: constipation, Pertinent negatives: chest pain, shortness of breath. The symptoms are described as crampy, bloating. Modifying factors: The symptoms are alleviated by nothing, the symptoms are aggravated by nothing. Severity of pain: in the emergency department the pain is actually worse. The patient has not experienced similar symptoms in the past. The patient has not recently seen a physician. Historical: - Allergies: 13:40 No Known Allergies; bb - Home Meds: 13:40 None [Active]; bb - PMHx: 13:40 Diabetes - NIDDM; bb - PSHx: 13:40 ; bb - Immunization history:: Adult Immunizations. - Social history:: Smoking status: Patient denies any tobacco usage or history of. ROS: 13:56 Constitutional: Negative for fever, chills, and weight loss, Cardiovascular: Negative pm1 for chest pain, palpitations, and edema, Respiratory: Negative for shortness of breath, cough, wheezing, and pleuritic chest pain. 13:56 Back: Negative for injury and pain, MS/Extremity: Negative for injury and deformity, Skin: Negative for injury, rash, and discoloration, Neuro: Negative for headache, weakness, numbness, tingling, and seizure. 13:56 Abdomen/GI: Positive for abdominal pain, constipation, Negative for nausea and vomiting. Exam: 13:56 Constitutional: This is a well developed, well nourished patient who is awake, alert, pm1 and in no acute distress. Head/Face: Normocephalic, atraumatic. 13:56 Back: No spinal tenderness. No costovertebral tenderness. Full range of motion. Skin: Warm, dry with normal turgor. Normal color with no rashes, no lesions, and no evidence of cellulitis. MS/ Extremity: Pulses equal, no cyanosis. Neurovascular intact. Full, normal range of motion. 13:56 Cardiovascular: Exam negative for acute changes, Rate: normal, Rhythm: regular, Pulses: no pulse deficits are appreciated. 13:56 Respiratory: Exam negative for acute changes, respiratory distress, shortness of breath. 13:56 Abdomen/GI: Inspection: abdomen appears normal, Palpation: abdomen is soft and non-tender, in all quadrants, mass, is not appreciated, rebound tenderness, is not appreciated. 13:56 Neuro: Exam negative for acute changes, Orientation: is normal, Mentation: is normal, Motor: is normal, moves all fours. Vital Signs: 13:38 BP 124 / 98; Pulse 92; Resp 16; Temp 98.6; Pulse Ox 100% on R/A; Weight 78.47 kg; bb Height 5 ft. 7 in. (170.18 cm); Pain 3/10; 15:36 BP 127 / 86; Pulse 86; Resp 18; Pulse Ox 100% on R/A; ph 16:29 BP 123 / 82; Pulse 78; Resp 20; Temp 98.1; Pulse Ox 100% on R/A; ph 13:38 Body Mass Index 27.10 (78.47 kg, 170.18 cm) bb MDM: 13:45 Patient medically screened. pm1 13:56 ED course: patient refused pain medications. pm1 15:48 Data reviewed: vital signs. Data interpreted: Pulse oximetry: on room air is 100 %. pm1 Interpretation: normal. Counseling: I had a detailed discussion with the patient and/or guardian regarding: the historical points, exam findings, and any diagnostic results supporting the discharge/admit diagnosis, lab results, radiology results, the need for outpatient follow up, to return to the emergency department if symptoms worsen or persist or if there are any questions or concerns that arise at home. 11/17 13:50 Order name: Basic Metabolic Panel pm1 11/17 13:50 Order name: CBC with Diff pm1 11/17 13:50 Order name: Hepatic Function pm1 11/17 13:50 Order name: Lipase pm1 11/17 14:23 Order name: CBC with Automated Diff; Complete Time: 14:33 EDMS 11/17 14:24 Order name: Urine Dipstick--Ancillary (enter results) 11/17 13:50 Order name: IV Saline Lock; Complete Time: 14:22 pm1 11/17 13:50 Order name: CT Abd/Pelvis - IV Contrast Only pm1 11/17 14:38 Order name: Basic Metabolic Panel; Complete Time: 14:39 [facility] 11/17 14:38 Order name: Liver (Hepatic) Function; Complete Time: 14:39 [facility] 11/17 14:38 Order name: Lipase; Complete Time: 14:39 [facility] 11/17 14:56 Order name: Urine --Ancillary (enter results) 11/17 15:40 Order name: CT; Complete Time: 15:43 [facility] 11/17 13:50 Order name: Labs collected and sent; Complete Time: 14:22 pm1 11/17 13:50 Order name: Urine Dipstick-Ancillary (obtain specimen); Complete Time: 14:22 pm1 11/17 13:50 Order name: Urine Test (obtain specimen); Complete Time: 14:22 pm1 Administered Medications: 14:10 Drug: NS 0.9% 1000 ml Route: IV; Rate: 1000 ml; Site: left forearm; ph 16:29 Follow up: Response: No adverse reaction; IV Status: Completed infusion; IV Intake: ph 1000ml Disposition: 16:36 Co-signature as Attending Physician, Sheldon Ortiz MD I agree with the assessment and kdr plan of care. Disposition: 11/18/19 15:49 Discharged to Home. Impression: Constipation. - Condition is Stable. - Discharge Instructions: Constipation, Adult. - Prescriptions for Lactulose 10 gram/15 mL Oral Solution - take 30 milliliter by ORAL route once daily; 300 milliliter. - Work release form, Medication Reconciliation Form, Thank You Letter, Antibiotic Education, Prescription Opioid Use form. - Follow up: Emergency Department; When: As needed; Reason: Worsening of condition. Follow up: Private Physician; When: 2 - 3 days; Reason: Recheck today's complaints, Continuance of care, Re-evaluation by your physician. - Problem is new. - Symptoms have improved. Signatures: Dis[facility] Sheldon Ortiz MD MD [facility] Shobha Merino RN RN Amanda Coffman RN RN Jayy Garay, [employer] TECHNICIAN pm1 Corrections: (The following items were deleted from the chart) 16:30 15:49 11/18/2019 15:49 Discharged to Home. Impression: Constipation. Condition is ph Stable. Forms are Medication Reconciliation Form, Thank You Letter, Antibiotic Education, Prescription Opioid Use. Follow up: Emergency Department; When: As needed; Reason: Worsening of condition. Follow up: Private Physician; When: 2 - 3 days; Reason: Recheck today's complaints, Continuance of care, Re-evaluation by your physician. Problem is new. Symptoms have improved. pm1
[2019-11-18 16:41] LABS: Urine Blood NEGATIVE (NEG); Urine Glucose NEGATIVE (NEG); Urine Protein NEGATIVE (NEG)
[2019-11-18 16:45] VITALS: O2SAT 100
[2019-11-18 16:49] VITALS: BP 123/82; TEMP 98.1
== END 2019-11-18 16:30 | disposition home or self-care (01) ==
LOC: ER 13:28
DX: K59.00 Constipation, unspecified (principal); E11.9 Type 2 diabetes mellitus without complications
CPT/HCPCS: 96361; 85025; 80048; 36415; 81025; 82565; 80076; 81003; 83690; 74177; 96360; 99284; Q9967; J7030